=== PATIENT | male | born 1950 | race Caucasian/White ===

== ENCOUNTER 2023-12-28 12:55 | Emergency (ER) | payer MEDICARE, SELFPAY ==
[2023-12-28 12:55] VITALS: BP 151/86; BMI 26.4
[2023-12-28 13:00] VITALS: BP 151/86
[2023-12-28 13:21] LABS: % Basophils 0.6 % (0-2); % Eosinophils 2.8 % (0-6); % Lymphocytes 18.3 % (20.5-51.1); % Monocytes 14.6 % (1.7-9.3); % Neutrophils 62.7 % (42.2-75.2); Absolute Basophils 0.1 10^3/uL (0-0.2); Absolute Eosinophils 0.2 10^3/uL (0-0.7); Absolute Immature Granulocytes 0.1 10^3/uL (0-0.05); Absolute Lymphocytes 1.4 10^3/uL (1.2-3.4); Absolute Monocytes 1.2 10^3/uL (0.1-0.6); Absolute Neutrophils 4.9 10^3/uL (1.4-6.5); Hematocrit 36.3 % (39.0-52.0); Hemoglobin 12.6 g/dL (13.0-18.0); Mean Corp Hgb Conc. 34.7 g/dL (33.0-37.0); Mean Corpuscular Hgb 37.2 pg (27.0-31.0); Mean Corpuscular Volume 107.1 fL (80.0-94.0); Mean Platelet Volume 9.4 fL (7.4-10.4); Nucleated Red Blood Cells % 0 % (-); Platelet Count 148 10^3/uL (130-400); Red Blood Cell Count 3.39 10^6/uL (4.70-6.10); Red Cell Dist. Width 12.3 % (11.5-14.5); White Blood Cell Count 7.9 10^3/uL (4.8-10.8)
[2023-12-28 13:32] LABS: ALT (SGPT) 18 U/L (0-50); AST (SGOT) 28 U/L (17-59); Albumin 3.5 g/dl (3.5-5.0); Alkaline Phosphatase 93 U/L (38-126); Blood Urea Nitrogen 23 mg/dl (9-20); Calcium 8.9 mg/dl (8.4-10.2); Carbon Dioxide 18 mmol/L (22-30); Chloride 103 mmol/L (98-107); Estimated Creatinine Clearance 63 ml/min; Glucose 123 mg/dl (70-99); Potassium 4.5 mmol/L (3.5-5.1); Sodium 135 mmol/L (135-145); Total Bilirubin 0.6 mg/dl (0.2-1.3); Total Protein 6.6 g/dl (6.3-8.2); eGFR > 60.00
[2023-12-28 13:44] LABS: Troponin I < 0.012 ng/ml
[2023-12-28 14:00] VITALS: BP 156/102
--- NOTE | 2023-12-28 14:20 | ED.GENMED ---
History of Present Illness
General
Chief Complaint: Fainting Sensation
Time Seen by Provider: 12/28/23 14:20
Travel History
Have you had any contact with someone who has COVID-19?: No
Do you have any symptoms of coronavirus? Fever > 100 degrees, chills, cough, shortness of breath, sore throat, loss of taste or smell, muscle aches, or headache?: No
History of Present Illness
History of Present Illness:
HPI: Patient felt dizzy earlier today, lowered himself to the ground as he was getting out of the car, and EMS was called but found blood pressure of 80/50 and after 400 mL of IV fluid BP improved to 140/80. Glucose was 127. Currently he has no
symptoms other than some degree of weakness.
EXAM:
GENERAL: Well appearing in no distress, blood pressure somewhat hypertensive
HEENT: Moist oral mucosa
CARDIOVASCULAR: No murmurs, normal heart rate, regular rhythm, No chest wall tenderness
PULMONARY: No respiratory distress, breath sounds are clear and equal
ABDOMEN: Soft with no peritoneal signs, no tenderness
NEUROLOGIC: Excellent strength all extremities, no coordination deficits
PSYCHIATRIC: Appropriate mental status, normal insight and judgement
EXTREMITIES: Nontender, no edema, moves all extremities equally
SKIN: No rash, no lesions
TIME OF INITIAL ENCOUNTER: 2:25 PM
NUMBER AND COMPLEXITY OF PROBLEMS ADDRESSED AT THE ENCOUNTER
� Chronic conditions affecting care: History of migraine, hypothyroidism
� Acute Exacerbation and/or Progression of Chronic Illness: This is an acute problem
� Differential Diagnosis includes: Dehydration, DOMINIQUE, doubt ACS as he is never had any chest pain doubt sepsis his vital signs not consistent with sepsis and white count normal
AMOUNT AND/OR COMPLEXITY OF DATA TO BE REVIEWED AND ANALYZED
� I performed an independent evaluation of and my interpretation is:
EKG: Sinus 65, normal axis, no acute ST abnormality
CT:
X-rays:
Laboratory Studies: White count normal, hemoglobin 12.6, bicarb slightly low at 18, BUN 23, creatinine 1.2, troponin negative
Other:
� Review of other/old records: ~22, BUN 20, creatinine 0.9
� Clinical information was obtained by an independent historian:
� Prescriptions/Medications Considered but not given:
� Further testing considered but not performed:
RISK OF COMPLICATIONS AND/OR MORBIDITY OR MORTALITY OF PATIENT MANAGEMENT
� Social determinants of health affecting care: Lives at home
� Discussion with other providers:
� Escalation of care including admission/observation vs risk of discharge considered: Bicarb slightly low and BUN slightly high suggestive of dehydration�he was given IV fluids and blood pressure has improved. Other than feeling
tired, the patient otherwise has no symptoms as of 2:35 PM. He feels comfortable with going home.
Past History
Past History
ED Past Medical History: Hypothyroidism
ED Past Surgical History: Orthopedic
Social History
Tobacco: Non-smoker
Alcohol: None
Personal:
Living: alone
Employment: Retired
Phy Exam
Physical Exam
Physical Exam:
See HPI
Course
Orders/Labs/Results
Orders:
Orders
12/28/23 13:03
Electrocardiogram (*1) Urgent
Reason for Study: Chest Pain
Cardiac Monitoring- Treatment ONCE
EKG- Treatment ONCE
IV Insert/Care/Rem.- Treatment PRN
O2 Therapy [RESP] Urgent
Titrate/Wean O2 to maintain O2 sat greater than (%): 90
Special Instructions: Maintain sats >/=90%
Pulse Ox/spot Check [RESP] Urgent
Quantity: 1
Special Instructions: ON ROOM AIR
12/28/23 13:11
Complete Blood Count/With Diff Urgent
Comprehensive Metabolic Panel Urgent
Troponin I Urgent
Abnormal Lab Results
12/28/23
13:11
RBC 3.39 L 10^6/uL
(4.70-6.10)
Hgb 12.6 L g/dL
(13.0-18.0)
Hct 36.3 L %
(39.0-52.0)
MCV 107.1 H fL
(80.0-94.0)
MCH 37.2 H pg
(27.0-31.0)
Abs Immat Gran (auto) 0.1 H 10^3/uL
(0-0.05)
Absolute Monos (auto) 1.2 H 10^3/uL
(0.1-0.6)
Immature Gran % 1.0 H %
(0-0.5)
Lymphocytes % 18.3 L %
(20.5-51.1)
Monocytes % 14.6 H %
(1.7-9.3)
Carbon Dioxide 18 L mmol/L
(22-30)
BUN 23 H mg/dl
(9-20)
Glucose 123 H mg/dl
(70-99)
12/28/23 13:11
12/28/23 13:11
Vital Signs
Initial and Last Documented VS:
Initial Vital Signs
Temp Pulse Resp BP Pulse Ox
97.6 F 78 20 151/86 98
12/28/23 12:55 12/28/23 12:55 12/28/23 12:55 12/28/23 12:55 12/28/23 12:55
Last Documented Vital Signs
Temp Pulse Resp BP Pulse Ox
97.6 F 69 24 156/102 97
12/28/23 12:55 12/28/23 14:00 12/28/23 14:00 12/28/23 14:00 12/28/23 14:00
*Critical Care Note
Total Time (30-74mins, 75-104mins- exclusive of procedures): Not Applicable
ED Attending Note
-
Portions of this chart may have been created with voice recognition software.� Occasional wrong word or��sound alike� substitutions may have occurred due to the inherent limitations of voice recognition software.
Discharge Plan
Departure
Prescriptions:
No Action
ofloxacin [Ocuflox] 0.3 % drops
2 drp ophthalmic (eye) QID Qty: 5 0RF
levothyroxine 137 mcg tablet
137 mcg PO DAILY@0700
prednisolone acetate 1 % drops,suspension
erythromycin 5 mg/gram (0.5 %) ointment
montelukast 10 mg tablet
10 mg PO QPM
fluticasone propionate 50 mcg/actuation spray,suspension
2 spray INTRANASAL DAILY
moxifloxacin 0.5 % drops
amoxicillin-pot clavulanate 875-125 mg tablet
1 tab PO BID 3 Days Qty: 6 0RF
Referrals:
Keyona Perez MD [Family Provider] -
Interventions
Interventions:
*Risk Screen - Suicide Last Done: 12/28/23 12:55
*General Assessment Last Done: 12/28/23 12:55
*Neglect/Abuse Screening Last Done: 12/28/23 12:55
ED- Fall Risk Assessment Last Done: 12/28/23 12:55
ED- Cardiac Assessment Last Done: 12/28/23 12:55
ED- Neurological Assessment Last Done: 12/28/23 12:55
Discharge Date and Time
Print Language: PERSIAN
== END 2023-12-28 14:58 | disposition home or self-care (01) ==
LOC: EMR 12:55
PROVIDERS: Emergency Medicine; EMERGENCY PHYSICIAN Emergency Medicine; FAMILY PHYSICIAN Internal Medicine
DX: R55 Syncope and collapse (principal); E03.9 Hypothyroidism, unspecified
CPT/HCPCS: 99283; 80053; 84484; 85025; 93005

== ENCOUNTER → 2024-01-06 08:53 | Outpatient (REF) | payer MEDICARE, SELFPAY | LOC: WOUND 08:53 | PROVIDERS: ATTENDING PHYSICIAN Surgery | DX: T23.251A Burn of second degree of right palm, initial encounter (principal); T23.252A Burn of second degree of left palm, initial encounter; X17.XXXA Contact with hot engines, machinery and tools, initial encounter | CPT/HCPCS: 99203 ==

== ENCOUNTER → 2024-01-12 10:52 | Outpatient (REF) | payer MEDICARE, SELFPAY | LOC: WOUND 10:52 | PROVIDERS: ATTENDING PHYSICIAN Surgery; FAMILY PHYSICIAN Internal Medicine | DX: T23.251A Burn of second degree of right palm, initial encounter (principal); T23.252A Burn of second degree of left palm, initial encounter; X17.XXXA Contact with hot engines, machinery and tools, initial encounter | CPT/HCPCS: 99213 ==

== ENCOUNTER → 2024-01-19 10:28 | Outpatient (REF) | payer MEDICARE, SELFPAY | LOC: WOUND 10:28 | PROVIDERS: ATTENDING PHYSICIAN Surgery; FAMILY PHYSICIAN Internal Medicine | DX: T23.251A Burn of second degree of right palm, initial encounter (principal); T23.252A Burn of second degree of left palm, initial encounter; X17.XXXA Contact with hot engines, machinery and tools, initial encounter | CPT/HCPCS: 99212 ==

== ENCOUNTER → 2024-02-09 15:58 | Outpatient (REF) | payer MEDICARE, SELFPAY | LOC: HWRAD 15:58 | PROVIDERS: ATTENDING PHYSICIAN Internal Medicine | DX: R55 Syncope and collapse (principal); R60.0 Localized edema; R53.83 Other fatigue; I49.9 Cardiac arrhythmia, unspecified; E03.9 Hypothyroidism, unspecified | CPT/HCPCS: 71046 ==

== ENCOUNTER → 2024-02-17 09:26 | Outpatient (REF) | payer MEDICARE, SELFPAY | LOC: RCS 09:26 | PROVIDERS: ATTENDING PHYSICIAN Internal Medicine | DX: R55 Syncope and collapse (principal); R60.0 Localized edema; R53.83 Other fatigue; I49.9 Cardiac arrhythmia, unspecified; E03.9 Hypothyroidism, unspecified | CPT/HCPCS: 93225; 93226 ==

== ENCOUNTER → 2024-02-24 14:47 | Outpatient (REF) | payer MEDICARE, SELFPAY | LOC: HWRCS 14:47 | PROVIDERS: ATTENDING PHYSICIAN Internal Medicine | DX: R55 Syncope and collapse (principal); R60.0 Localized edema; R53.83 Other fatigue; I49.9 Cardiac arrhythmia, unspecified; E03.9 Hypothyroidism, unspecified | CPT/HCPCS: 93306 ==

== ENCOUNTER 2024-02-25 06:11 | Day surgery (SDC) | payer MEDICARE, SELFPAY ==
[2024-02-25 08:09] VITALS: BMI 25.1
[2024-02-25 08:10] VITALS: BP 153/93; BMI 25.1
[2024-02-25] MEDS: TYLENOL 1000 MG PO (08:18)
[2024-02-25] MEDS: NORMOSOL-R 1000 IV (08:19)
[2024-02-25 09:36] VITALS: BP 103/69
[2024-02-25 09:45] VITALS: BP 107/71
[2024-02-25 10:00] VITALS: BP 131/84
== END 2024-02-25 10:19 | disposition home or self-care (01) ==
LOC: SDS 06:11
PROVIDERS: ATTENDING PHYSICIAN Otolaryngology
DX: H65.23 Chronic serous otitis media, bilateral (principal); H69.83 Other specified disorders of Eustachian tube, bilateral; H90.6 Mixed conductive and sensorineural hearing loss, bilateral
CPT/HCPCS: 69436; L8699

== ENCOUNTER → 2024-03-01 10:32 | Outpatient (REF) | payer MEDICARE, SELFPAY | LOC: RCS 10:32 | PROVIDERS: ATTENDING PHYSICIAN Internal Medicine | DX: Z87.898 Personal history of other specified conditions (principal); R53.83 Other fatigue | CPT/HCPCS: 93017 ==

== ENCOUNTER 2024-10-19 18:59 | Inpatient (IN) | payer MEDICARE, SELFPAY ==
[2024-10-19] VITALS (10 sets, daily range): BP systolic 111–169; BP diastolic 76–109; BMI 26.5; BMI 25.4
[2024-10-19 13:37] LABS: % Basophils 0.8 % (0-2); % Eosinophils 2.2 % (0-6); % Immature Granulocytes 0.5 % (0-0.5); % Lymphocytes 10.6 % (20.5-51.1); % Monocytes 16.1 % (1.7-9.3); % Neutrophils 69.8 % (42.2-75.2); Absolute Basophils 0.1 10^3/uL (0-0.2); Absolute Eosinophils 0.1 10^3/uL (0-0.7); Absolute Lymphocytes 0.6 10^3/uL (1.2-3.4); Absolute Neutrophils 4.2 10^3/uL (1.4-6.5); Hematocrit 36.1 % (39.0-52.0); Hemoglobin 12.9 g/dL (13.0-18.0); Mean Corp Hgb Conc. 35.7 g/dL (33.0-37.0); Mean Corpuscular Hgb 37.9 pg (27.0-31.0); Mean Corpuscular Volume 106.2 fL (80.0-94.0); Mean Platelet Volume 8.9 fL (7.4-10.4); Nucleated Red Blood Cells % 0 % (-); Platelet Count 111 10^3/uL (130-400); Red Cell Dist. Width 12.6 % (11.5-14.5)
[2024-10-19 13:49] LABS: ALT (SGPT) 37 U/L (0-50); AST (SGOT) 59 U/L (17-59); Albumin 4.2 g/dl (3.5-5.0); Alkaline Phosphatase 89 U/L (38-126); Blood Urea Nitrogen 19 mg/dl (9-20); Calcium 9.2 mg/dl (8.4-10.2); Carbon Dioxide 23 mmol/L (22-30); Chloride 95 mmol/L (98-107); Estimated Creatinine Clearance 69 ml/min; Glucose 107 mg/dl (70-99); Potassium 4.8 mmol/L (3.5-5.1); Sodium 127 mmol/L (135-145); Total Bilirubin 1.6 mg/dl (0.2-1.3); Total Protein 7.5 g/dl (6.3-8.2); eGFR > 60.00
[2024-10-19 13:55] LABS: COVID-19 Antigen Negative (Negative)
--- NOTE | 2024-10-19 14:24 | ED.GENMED ---
History of Present Illness
General
Chief Complaint: Breathing Problem
Source: patient and family
Exam Limitations: clinical condition
Time Seen by Provider: 10/19/24 13:46
Nursing documentation reviewed up to this point in time: agreed with
History of Present Illness
History of Present Illness:
73 y/o M with h/o COPD, ex smoker
h/o drug and alcohol use (mabye current, maybe int he past)
here with cough/cold sxs and weakness
pt says he has been sick 3-4 days, fever/chills/SOB and coughing
but his daughter says that 4 days ago his found him passed out on the floor an dnot really responsive but pt woke up and told her he had used some marijuana gummies and went to bed
pt says he doesn't remember that
daugther who is with him says that he is confused, stuttering, sometimes speaking jibberish which is unlike him
she is concerned he is using more drug sand alcohol than he amy dmit to
she also says she is his POA but thinks his is trying to take over
pt is not rashad to answer these questions
Past History
Past History
ED Past Medical History: Hypothyroidism
ED Past Surgical History: Orthopedic
Social History
Tobacco: Non-smoker
Alcohol: None
Personal:
Living: alone
Employment: Retired
Review of Systems
Review of Systems
Allergies reviewed?: Yes
Unable to obtain full review of systems at this time due to: other (clinical condition)
All Other Systems: Not applicable
Phy Exam
Physical Exam
Physical Exam:
GENERAL: Alert , in no apparent distress, awake and alert;
EYE: pupils equal and reactive
NECK: Supple
ENT: o/p clr, mmm.
CARDIAC: Regular rate and rhythm .no edema
LUNGS: dimiinshed throughout, occ cough, crackles L base, wheezes b/l
ABDOMEN: Soft, without focal tenderness, no r/g, no cvat, normal bowel sounds
NEUROLOGICAL: Alert and oriented x 3, no focal neuro deficits, cn intact, 5/5 strenbgth; but p
speaks some jibberish words but intermittently
SKIN: Warm and dry, skin intact.
MUSCULOSKELETAL: No edema, well perfused. neg maru's sign
PSYCH: Normal and appropriate interaction.
Scores
Heart Failure Risk
Heart Failure Risk Score: Not Applicable
Sepsis
Sepsis Screening
Sepsis Assessment: Sepsis Ruled Out
Sepsis Screen
Sepsis Screen: Sepsis Ruled Out
Date: 10/19/24
Time: 20:03
Course
Orders/Labs/Results
Orders:
Orders
10/19/24 13:26
Electrocardiogram (*1) Urgent
Reason for Study: Shortness of Breath
EKG- Treatment ONCE
CR Chest - 2 Views Urgent
Comment:
Reason For Exam: cough
10/19/24 13:27
Alcohol Urgent
COVID-19 Antigen Urgent
Source: Nasal Swab
Complete Blood Count/With Diff Urgent
Comprehensive Metabolic Panel Urgent
Lactic Acid Urgent
Influenza A+B Rapid Molecular Urgent
ANIRUDH Source: Nasal Swab
Specimen Description:
10/19/24 14:21
Add On- LAB Urgent
Tests Added?: alcohol
CT Head W/o Iv Contrast Urgent
Comment:
Reason For Exam: confusion, passing out, alcohol;
Acetaminophen [Tylenol] 650 mg PO NOW STA
10/19/24 14:22
Dexamethasone Sod Phosphate [Decadron] 6 mg IV NOW STA
Ipratropium/Albuterol Sulfate [Duoneb] 3 ml INH R NOW STA
10/19/24 15:47
CT Chest PE Study Urgent
Comment:
Reason For Exam: syncope, hypoxia, cough, fever
10/19/24 16:47
0.9% Sodium Chloride 500 ml [Nss] 500 ml IV BOLUS
10/19/24 17:05
Urinalysis Reflex To Culture Urgent
Date Specimen was Collected: 10/19/24
Time Specimen was Collected: 16:15
Urine Drug Abuse Screen Urgent
Date Specimen was Collected: 10/19/24
Time Specimen was Collected: 16:15
Urine Microscopic Reflex Cult Urgent
10/19/24 18:30
ABG [Arterial Blood Gas] Stat
%Oxygen/Room Air: 95%/2L
Procalcitonin Stat
PCT Algorithmm Indication: Respiratory
10/19/24 18:44
Admit/Transfer Patient As Directed
Co-Sign Provider:
Level of Care: Inpatient admission
Assign to:: Telemetry
Physician / Group: Tc Choudhary
Diagnosis: TME, hyponatremia
Reason for Telemetry: Syncope
Date to Stop Telemetry: 10/21/24
Time to Stop Telemetry: 11:00
Reason for Hospitalization: TME, hyponatremia
Expected length of stay greater than two midnights?: Yes
ELOS- Estimated Length of Stay in days: 3
I certify the patient meets the requirements for IP care: Yes
10/19/24 18:45
PRN Pain Medication Management As Directed
May give lesser potent ordered pain med per pt: Yes
preference::
Protocol:: Medication orders for pain may be administered in a
manner that supports deferring to patient preference
when the pt is:
- Requesting an ordered lesser potent pain medication.
Least to most potent pain medications are defined
as: acetaminophen < NSAID < tramadol < opioids
(morphine, oxycodone, hydromorphone).
- Requesting a lesser dose of the same medication IF
ORDERED.
- Requesting a less intrusive route of administration
if both routes are prescribed by the provider (PO <
IV).
10/19/24 18:46
Code Status As Directed
Resuscitation Status: Full Code
10/21/24 11:00
DC Protocol for Telemetry ONCE
Abnormal Lab Results
10/19/24 10/19/24 10/19/24
13:27 17:05 18:30
RBC 3.40 L 10^6/uL
(4.70-6.10)
Hgb 12.9 L g/dL
(13.0-18.0)
Hct 36.1 L %
(39.0-52.0)
MCV 106.2 H fL
(80.0-94.0)
MCH 37.9 H pg
(27.0-31.0)
Plt Count 111 L 10^3/uL
(130-400)
Absolute Lymphs (auto) 0.6 L 10^3/uL
(1.2-3.4)
Absolute Monos (auto) 1.0 H 10^3/uL
(0.1-0.6)
Lymphocytes % 10.6 L %
(20.5-51.1)
Monocytes % 16.1 H %
(1.7-9.3)
pH 7.49 H
(7.35-7.45)
pCO2 31 L mmHg
(35-48)
Sodium 127 L mmol/L
(135-145)
Chloride 95 L mmol/L
(98-107)
Glucose 107 H mg/dl
(70-99)
Total Bilirubin 1.6 H mg/dl
(0.2-1.3)
Urine Ketones 2+ A
(Negative)
Ur Occult Blood Reflex 2+ A
(Negative)
U Marijuana (THC) Screen Positive H
(Negative)
10/19/24 13:27
10/19/24 13:27
Vital Signs
Initial and Last Documented VS:
Initial Vital Signs
Temp Pulse Resp BP Pulse Ox
37.6 C 114 16 151/109 91
10/19/24 13:16 10/19/24 13:16 10/19/24 13:16 10/19/24 13:16 10/19/24 13:16
Last Documented Vital Signs
Temp Pulse Resp BP Pulse Ox
36.9 C 75 26 148/106 93
10/19/24 17:20 10/19/24 18:45 10/19/24 18:45 10/19/24 18:00 10/19/24 18:45
MDM/Problems Addressed
Differential Diagnosis Includes:
, PEbronchitis, pneumonia, sepsis, head injury
MDM/Problems Addressed:
fay rose 73 y/o M COPD, doesn't go to doctor often
change in mental status on 10/15 for who noticed confusion, weakness, facial droop, word finding issues; he told her he used marijuana and went to bed rather than coming in
she said the following day he was not himself
but then was ok
low grade temp and cough x 3 days
today fatige, dyspneic, and weak genearlized;
she also thought he had facial droop not appreciated here
febrile 100.6 for me, faint wheezes/crackles, cough
a&ox3 but some word confusion
pulse ox 90% on RA
cxr clear, covid/flu neg
PE study neg
ct head neg
suspect COPD exac with confusion related to fever/hypoxia; pending ua; steroids/duoneb given
*Critical Care Note
Total Time (30-74mins, 75-104mins- exclusive of procedures): Not Applicable
ED Attending Note
-
Portions of this chart may have been created with voice recognition software.� Occasional wrong word or��sound alike� substitutions may have occurred due to the inherent limitations of voice recognition software.
Discharge Plan
Departure
Patient Disposition: Admit
Date of Disposition: 10/19/24
Time of Disposition: 16:43
Admit to: Telemetry
Presentation/result/management discussed w/ accepting MD/DO: Hospitalist
Condition: Fair
Covid-19: Negative COVID-19
Discharge Problem:
Acute exacerbation of chronic obstructive pulmonary disease, Hypoxia, Confusion, Acute febrile illness
Interventions
Interventions:
*Risk Screen - Suicide Last Done: 10/19/24 13:25
*General Assessment Last Done: 10/19/24 13:25
*Neglect/Abuse Screening Last Done: 10/19/24 13:25
*ED COVID-19 Vaccine History Last Done: 10/19/24 13:44
ED- Cardiac Assessment Last Done: 10/19/24 13:44
ED- Pulmonary Assessment Last Done: 10/19/24 13:44
[2024-10-19] MEDS: TYLENOL 650 MG PO (14:37)
[2024-10-19] MEDS: DECADRON 6 MG IV (14:37)
[2024-10-19] MEDS: DUONEB 3 ML INH (14:37)
[2024-10-19 15:15] LABS: Alcohol None Detected
[2024-10-19 17:26] LABS: Urine Albumin Negative (Neg - Trace); Urine Bilirubin Negative (Negative); Urine Character Clear (Clear); Urine Color Yellow; Urine Glucose Negative (Negative); Urine Ketone 2+ (Negative); Urine Leukocyte Negative (Negative); Urine Nitrite Negative (Negative); Urine Occult Blood 2+ (Negative); Urine Specific Gravity 1.005 (<1.030); Urine Urobilinogen Negative (Neg - 1+)
[2024-10-19 17:30] LABS: Amphetamines Negative (Negative); Barbiturates Negative (Negative); Benzodiazepines Negative (Negative); Buprenorphine Negative (Negative); Cocaine Negative (Negative); Marijuana Positive (Negative); Methadone Negative (Negative); Methamphetamines Negative (Negative); Opiates Negative (Negative); Phencyclidine Negative (Negative); Tricyclic Antidepressants Negative (Negative)
[2024-10-19 17:35] LABS: Urine Red Blood Cell 0-2 /HPF (0-2); Urine Squamous Cell 0-2 /LPF (Few); Urine White Cell 0-2 /HPF (0-5)
--- NOTE | 2024-10-19 17:50 | HPS.HSE ---
Addendum entered and electronically signed by Tc Choudhary MD 10/20/24 08:50:
73-year-old male with a past medical history of former smoking, COPD/asthma, hypothyroidism, and GERD who presents with cough and confusion for several days. He denies shortness of breath, but was found to be hypoxic in the ER, satting 91% on room
air. He is currently requiring 93% on 2 L. His confusion is currently improved. He admits to ingesting THC Gummies recently. His sodium is noted to be 127. CT chest negative for PE, negative for pneumonia.
Will treat for asthma/COPD exacerbation with IV steroids, bronchodilators, doxycycline. Consult pulmonology.
His confusion could be secondary to ingestion of THC Gummies versus hyponatremia. UDS noted, positive for THC.
For hyponatremia, he is on levothyroxine for his hypothyroidism. Check TSH with free T4, a.m. cortisol, urine sodium/osmolality, serum osmolality.
Fluid restrict, trend sodium.
I have personally seen and examined the patient on 10/19/2024, and agree with the plan of care as documented by MARIAN Gamez.
Advance care planning discussed, patient is a full code.
All other issues as outlined by the advanced care practitioner.
Updated family at bedside.
Total time spent to see the patient on the floor, examine the patient, review data and lab results, discuss treatment plan with patient, nursing staff around 77 minutes.
Original Note:
Family Physician
-
Family Physician: Keyona Perez
Chief Complaint
-
confusion
History of Present Illness
Patient is a 73-year-old male with past medical history significant for mild intermittent asthma, IDL, hypothyroidism and GERD who presented to [facility] ED for evaluation of confusion and weakness. Patient able to supply information for HPI. He reports
that he is here for confusion and weakness. He claims he started with a mildly productive cough on Friday and has increasingly felt weaker the past few days. Daughter present who stated patients found him passed out on floor Friday morning,
was nonresponsive for a period time and when he did wake he refused to come to hospital and said he had used marijuana gummies and went to bed. Daughter believes patient is confused, stuttering and at times speaking jibberish which is not his
baseline. Patient reports possible fever at home. Denies any shortness of breath, chest pain, nausea, vomiting, constipation, diarrhea or urinary symptoms.
Medical History
Past Medical History
Past Medical History: Reports Other
Additional Past Medical History:
mild intermittent asthma
ILD
hypothyroidism
GERD
Past Surgical History: Reports Other
Additional Past Surgical History:
Arthroscopy knee(1979)
Vasectomy(1989)
Squamous cell carcinoma - wide excision from Right cheek, done by Dr. Jatinder Alexandre 09/2020
Squamous cell removal from chest Jun 2024
Social History
Tobacco: Non-smoker
Alcohol: None
Drug: Marijuana (uses gummies just about nightly )
Personal:
Living: With Family
Family History
Family History: Other (Mother: Ovarian Ca; Father CVA)
Allergies / Home Medications
Allergies reflects when Allergies were last updated in [employer].
Home Medications with original date entered in [employer]
Allergy/Medication List:
Allergies
Allergy/AdvReac Type Severity Reaction Status Date / Time
Sulfa (Sulfonamide Allergy depression Verified 10/19/24 13:25
Antibiotics)
Home Medications
fluticasone propionate 50 mcg/actuation nasal spray,suspension 2 spray intranasal DAILY 02/28/23
levothyroxine 137 mcg tablet 137 mcg PO DAILY 02/28/23
montelukast 10 mg tablet 10 mg PO HS 02/28/23
budesonide-formoterol HFA 80 mcg-4.5 mcg/actuation aerosol inhaler (Symbicort) 2 puff inhalation R BID 02/02/24
vitamin A-vitamin C-vit E-min tablet 1 tab PO DAILY 02/02/24
testosterone 1 % (50 mg/5 gram) transdermal gel packet 1 packet transdermal DAILY upper torso 02/25/24
albuterol sulfate 90 mcg/actuation aerosol inhaler 2 puff inhalation R Q6HPRN PRN sob 10/19/24
peg 400-propylene glycol (PF) 0.4 %-0.3 % eye drops in a dropperette (Systane (PF)) 1 drp BOTH EYES Q6HPRN PRN dry eyes 10/19/24
vitamin B complex 1 tab PO DAILY 10/19/24
vitamin D3 125 mcg (5,000 unit)-vitamin K2 100 mcg capsule 1 cap PO DAILY 10/19/24
Review of Systems
-
Unable to obtain full review of systems at this time due to: Other (altered mental status )
History Source: Patient
Constitutional: Reports Fever
Respiratory: Reports Cough
Neurological: Reports Weakness and Other (confusion )
Physical Exam
Vital Signs
Vital Signs
Temp Pulse Resp BP Pulse Ox
99.7 F 93 26 164/107 94
10/19/24 13:16 10/19/24 16:20 10/19/24 16:20 10/19/24 16:20 10/19/24 16:20
Physical Exam
General: Well Developed, Well Nourished and No Apparent Distress
HEENT: NormoCephalic, Moist mucous membranes, Atraumatic, [place] Conjunctivae, Nose Appears Normal and Ears Appear Normal
Respiratory: Clear and Decreased Breath Sounds
Cardiac: S1/S2 and Regular Rhythm
Breast: Deferred by me
GI: Soft, Non Tender, Non Distended and Normal Bowel Sounds; No Organomegaly
Rectal: Deferred by Provider
Genito-urinary: Deferred by me
Musculoskeletal: No Clubbing, No Cyanosis and No Edema
Skin: IV/Catheter Site
Neuro: Awake, Alert and Nonfocal/grossly intact
Psych: Calm and Confused
Laboratory Results
-
10/19/24 13:27
10/19/24 13:27
Laboratory Results
Lactic Acid 1.0 mmol/L (0.7-2.0) 10/19/24 13:27
Total Bilirubin 1.6 mg/dl (0.2-1.3) H 10/19/24 13:27
AST 59 U/L (17-59) 10/19/24 13:27
ALT 37 U/L (0-50) 10/19/24 13:27
Alkaline Phosphatase 89 U/L (38-126) 10/19/24 13:27
Data Reviewed
-
Diagnostic Radiology: Report Reviewed by me (CXR: No acute cardiopulmonary process.)
CT Scan: Report Reviewed by me (Head: No acute intracranial abnormality noted. No acute intracranial hemorrhage. Mild chronic microvascular white matter ischemic disease. Moderate to advanced atrophy. Mild acute superimposed on chronic
sinusitis. Nonspecific likely reactive/sterile mastoid effusions. Acute mastoiditis felt to) and Other (Chest CT: 1. No evidence of pulmonary embolism. 2. Prominent mediastinal and right hilar lymph nodes, nonspecific and likely reactive.)
Medical Tests (Nuc Med, Echo, EKG etc): Report Reviewed by me (EKG: NORMAL SINUS RHYTHM)
Lab Data: Labs Reviewed by me (na+ 127)
Impression/Plan
-
IMPRESSION/PLAN:
#toxic metabolic encephalopathy 2/2 infectious process vs. drug induced from THC
fever at home with hypoxia
Na+ 127
UDS: + marijuana
EKG: NORMAL SINUS RHYTHM
CXR: No acute cardiopulmonary process.
Head CT: No acute intracranial abnormality noted.
No acute intracranial hemorrhage.
Mild chronic microvascular white matter ischemic disease.
Moderate to advanced atrophy.
Mild acute superimposed on chronic sinusitis.
Nonspecific likely reactive/sterile mastoid effusions. Acute mastoiditis felt to be less likely. Clinical correlation recommended.
Chest CT: 1. No evidence of pulmonary embolism.
2. Prominent mediastinal and right hilar lymph nodes, nonspecific and likely reactive.
- Admit to telemetry
- Consult Pulmonary
- ABG pending
- dexamethasone
- DuoNebs QID and PRN
- Doxycycline
- if confusion does not improve consider consult to Neurology
#hyponatremia
Na+ 127
- fluid restriction
- monitor BMP
- Serum osmolality
- urine osmolality and urine sodium
- TSH, Free T4, cortisol
#mild intermittent asthma
#ILD
- continue albuterol HFA PRN, Symbicort and montelukast
#hypothyroidism
- continue levothyroxine
#GERD
Code status: Full code
DVT prophylaxis: Lovenox Sq
[2024-10-19] MEDS: NSS 500 IV (17:54)
[2024-10-19 18:39] LABS: HCO3 23.6 mmol/L (21-28); PCO2 31 mmHg (35-48); PO2 85 mmHg (83-108); pH 7.49 (7.35-7.45)
[2024-10-19 19:13] LABS: Procalcitonin 0.15 ng/ml (0.0-0.25)
--- NOTE | 2024-10-19 20:40 | PTCARENOTE ---
Addendum entered by Danisha Bass RN 10/19/24 20:44:
No order for msas at this time. Called to nurse on the floor to verbally pass on that patientmay be using alcohol at home.
Original Note:
Rn flow account [facility]-nursing admission assessment completed. Patient states that he has not drank for 10 years. Patient's daughter followed this nurse into the [facility] and stated that patient has been drinking and using marijuana. Spoke with Itzel bello,
who confirmed that patient denied alcohol use, and confirmed that patient's blood alcohol level upon admission was negative.
--- NOTE | 2024-10-19 22:42 | PTCARENOTE ---
Patient arrived from the ED via stretcher. Patient AAOx3, VSS. Patient ambulated into the room with assistance from staff. Oriented to the room. Updated on plan of care. Call tracy is within reach.
[2024-10-19] MEDS: SYMBICORT 80/4.5 MCG INHALER INH (22:47)
[2024-10-19] MEDS: SINGULAIR 10 MG PO (23:00)
[2024-10-19] MEDS: VIBRAMYCIN 100 MG PO (23:00)
[2024-10-19] MEDS: DECADRON 4 MG IV (23:00)
[2024-10-20] VITALS (8 sets, daily range): BP systolic 93–134; BP diastolic 64–90; PULSE 93–116; O2SAT 95
[2024-10-20 01:01] LABS: Osmolality Urine 207 mOsm/kg (300-900)
[2024-10-20 01:54] LABS: Urine Sodium 31 mmol/L (30-90)
[2024-10-20 02:29] LABS: Cortisol, Random 10.1 ug/dl
[2024-10-20] MEDS: DECADRON 4 MG IV (04:53)
[2024-10-20] MEDS: SYNTHROID 137 MCG PO (04:53)
[2024-10-20] MEDS: SYMBICORT 80/4.5 MCG INHALER 2 PUFF INH (07:24)
[2024-10-20] MEDS: ProAIR HFA INHALER 2 PUFF INH (07:25)
--- NOTE | 2024-10-20 07:29 | CON.PUL ---
Consultation
Consultation Request
Date/Time Consultation Requested: 10/19/2024
Date/Time Consultation Performed: 10/20/2024
Requesting Provider: Jenny Choudhary
Performing Provider: Melinda Hobson
Reason for Consultation: Shortness of breath
Medical History
-
Chief Complaint: Dyspnea
History of Present Illness:
Patient is a very pleasant 73 old gentleman with questionable history of COPD who presented to the hospital with cough and some confusion going on for few days. Patient reports that the cough started with some runny nose, nonproductive and has been
associated with wheezing. He does not report any similar episode in the last 1 year. Patient reports that he was given a diagnosis of COPD couple of years ago and takes Symbicort at home along with as needed albuterol. Usually he takes albuterol
only 2-3 times a week but lately since he got sick he has been using it multiple times every day without significant improvement. In the emergency room workup included a CT chest which was negative for pulmonary embolism or infiltrate but showed
mediastinal and hilar lymphadenopathy. Pulmonary consultation was requested for further input.
Social history. Patient reports that he smoked only for a year to year and a half, less than a pack a day and he quit more than 40 years ago. Does not report any inhaled marijuana use except for rare use in the remote past. Uses Marijuana gummies.
He is retired as a supply chain project manager and does not report any exposure to toxic chemicals or fumes. Patient does have a cat but does not report any exposure to birds. 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
etc. but does not report any allergic symptoms to these exposures.
Family history. No reported history of asthma. Mother had ovarian cancer.
Past Medical History: Reports Other
Additional Past Medical History:
mild intermittent asthma
?ILD
hypothyroidism
GERD
Past Surgical History: Reports Other
Additional Past Surgical History:
Arthroscopy knee(1979)
Vasectomy(1989)
Squamous cell carcinoma - wide excision from Right cheek, done by Dr. Jatinder Alexandre 09/2020
Squamous cell removal from chest Jun 2024
Family History
Family History: Other (Mother: Ovarian Ca; Father CVA)
Allergies / Home Medications
Allergies reflects when Allergies were last updated in [facility].
Allergies / Home Medications
Allergies
Allergy/AdvReac Type Severity Reaction Status Date / Time
Sulfa (Sulfonamide Allergy depression Verified 10/19/24 13:25
Antibiotics)
Home Medications
�Medication �Instructions �Recorded �Confirmed �Last Taken �Type
fluticasone propionate 50 2 spray intranasal DAILY 02/28/23 10/19/24 02/25/24 06:00 History
mcg/actuation nasal
spray,suspension
levothyroxine 137 mcg tablet 137 mcg PO DAILY 02/28/23 10/19/24 02/25/24 06:00 History
montelukast 10 mg tablet 10 mg PO HS 02/28/23 10/19/24 02/23/24 21:00 History
budesonide-formoterol HFA 80 2 puff inhalation R BID 02/02/24 10/19/24 02/25/24 06:00 History
mcg-4.5 mcg/actuation aerosol
inhaler (Symbicort)
vitamin A-vitamin C-vit E-min 1 tab PO DAILY 02/02/24 10/19/24 02/24/24 09:00 History
tablet
testosterone 1 % (50 mg/5 gram) 1 packet transdermal DAILY upper 02/25/24 10/19/24 02/24/24 History
transdermal gel packet torso
albuterol sulfate 90 mcg/actuation 2 puff inhalation R Q6HPRN PRN sob 10/19/24 10/19/24 Unknown History
aerosol inhaler
peg 400-propylene glycol (PF) 0.4 1 drp BOTH EYES Q6HPRN PRN dry eyes 10/19/24 10/19/24 Unknown History
%-0.3 % eye drops in a dropperette
(Systane (PF))
vitamin B complex 1 tab PO DAILY 10/19/24 10/19/24 Unknown History
vitamin D3 125 mcg (5,000 1 cap PO DAILY 10/19/24 10/19/24 Unknown History
unit)-vitamin K2 100 mcg capsule
Review of Systems
-
Hematologic/Lymphatic: Other (All 14 systems reviewed and negative except as stated above in the history of present illness.)
Vitals / Labs / Diagnostic Testing
Vital Signs
Temp Pulse Resp BP Pulse Ox
97.4 F 62 20 129/90 97
10/20/24 03:59 10/20/24 03:59 10/20/24 03:59 10/20/24 03:59 10/20/24 03:59
Laboratory Results
10/19/24
18:30
pH 7.49 H
pCO2 31 L
pO2 85
HCO3 23.6
O2 Delivery Level
Microbiology
10/19/24 13:27 Nasal Swab Influenza Types A & B (MARI) - Final
Negative for Influenza A & B, NAAT
Negative results must be combined with clinical observations
and patient history.
Nucleic Acid Amplification test (NAAT)performed on the
[employer] platform.
Diagnostic Testing:
Physical Exam
-
HEENT: Normocephalic
Cardiovascular: S1/S2
Respiratory: Wheeze (Bilateral end expiratory wheezing)
GI: Soft and Non Distended
Neurology: Awake and Alert
Skin: Warm
General: Comfortable
Assessment
-
#1. Acute exacerbation of hyperreactive airway disease, suspect asthma exacerbation. Patient smoked only for about a year and a half and does not have any emphysematous changes on imaging. Less likely has significant COPD. Suspect patient might
have underlying asthma.
-Hold Symbicort
-Start DuoNeb 4 times daily and budesonide twice daily scheduled
-Start Solu-Medrol 40 mg IV daily
-Post discharge, patient will need pulmonary function testing along with lung volumes, bronchodilator responsiveness and 6-minute walk test, will arrange that as outpatient
-Outpatient pulmonary follow-up
#2. Acute bronchitis. No definitive pulmonary infiltrates noted on imaging. CT scan reviewed and is not suggestive of interstitial lung disease based on radiological features.
-Can continue doxycycline for about 5 days
#3. Mediastinal and Hilar lymphadenopathy. CT scan reviewed and is suggestive of paratracheal and subcarinal lymphadenopathy along with right hilar lymph node enlargement. Right hilar is almost at 3.1 cm which is somewhat concerning. These
changes could be reactive to an infection but need close monitoring for other etiologies including malignancy.
-Continue treatment for acute bronchitis
-Will plan a 6 to 8-week follow-up CT scan as outpatient, if lymph node still enlarged, will need EBUS-TBNA. I updated the patient and her daughter at bedside regarding this abnormal finding and need for close follow-up as outpatient
-Recommend CT abdomen pelvis also, if any extrathoracic lymphadenopathy also noted, then will need tissue diagnosis sooner
Data:
CT CHEST 10/2024: 1. Mildly enlarged mediastinal lymph nodes measuring up to 1.4 cm in the low left paratracheal region and 1.1 cm short axis diameter in the subcarinal region. Right hilar lymphadenopathy measures up to 3.1 cm. Mild left hilar
lymphadenopathy. These lymph nodes are increased from prior.
2. No suspicious pulmonary nodules, areas of airspace disease, pleural or pericardial effusions. Heart is not enlarged. Mild to moderate coronary artery calcifications.
3. No PE
CXR 10/2024: Unremarkable
Exercise Stress test 02/2024: Negative for Ischemia
ECHO 02/2024: Normal left ventricular size, wall thickness and systolic function. No regional
wall motion abnormalities are seen. LV ejection fraction is 60-65% by Monsalve's
method of discs. Normal diastolic function.
Normal right ventricular size and function.
Mild mitral regurgitation.
Mild to moderate tricuspid regurgitation. Estimated pulmonary artery pressure
of 35-40 mmHg, assuming a right atrial pressure of 3 mmHg.
Compared to previous echo 09/04/2015, the tricuspid regurgitation is increased
from trace to mild-moderate.
[2024-10-20 08:11] LABS: Hematocrit 37.6 % (39.0-52.0); Hemoglobin 13.5 g/dL (13.0-18.0); Mean Corp Hgb Conc. 35.9 g/dL (33.0-37.0); Mean Corpuscular Hgb 38.5 pg (27.0-31.0); Mean Corpuscular Volume 107.1 fL (80.0-94.0); Mean Platelet Volume 9.6 fL (7.4-10.4); Platelet Count 120 10^3/uL (130-400); Red Blood Cell Count 3.51 10^6/uL (4.70-6.10); Red Cell Dist. Width 12.4 % (11.5-14.5); White Blood Cell Count 3.7 10^3/uL (4.8-10.8)
[2024-10-20 08:31] LABS: Osmolality Serum 289 mOsm/kg (275-300)
[2024-10-20 08:36] LABS: Blood Urea Nitrogen 23 mg/dl (9-20); Calcium 9.4 mg/dl (8.4-10.2); Carbon Dioxide 20 mmol/L (22-30); Chloride 102 mmol/L (98-107); Estimated Creatinine Clearance 84 ml/min; Glucose 197 mg/dl (70-99); Potassium 4.3 mmol/L (3.5-5.1); Sodium 136 mmol/L (135-145); eGFR > 60.00
[2024-10-20] MEDS: VIBRAMYCIN 100 MG PO ×2 (09:02→20:52)
[2024-10-20 09:06] LABS: TSH Reflex To Free T4 0.32 uIU/ml (0.47-4.68)
--- NOTE | 2024-10-20 09:10 | W.PN.HOSP.TC ---
Today's Communication/Plan
-
see bold
Assessment / Plan
Assessment / Plan
HPI: 73-year-old male with a past medical history of asthma, hypothyroidism, and GERD who presents with cough and confusion for several days. He denies shortness of breath, but was found to be hypoxic in the ER, satting 91% on room air. He is
currently requiring 93% on 2 L. His confusion is currently improved. He admits to ingesting THC Gummies recently. His sodium is noted to be 127. CT chest negative for PE, negative for pneumonia.
#Acute hypoxic respiratory insufficiency
#Acute asthma exacerbation
#COPD ruled out
#ILD ruled out
Patient only smoked for 1 year, he does not have COPD
Appreciate pulmonology input, continue IV steroids, bronchodilators, doxycycline for anti-inflammatory effect
Hypoxia resolved, currently 95% on room air, was requiring 2 L
#Acute toxic metabolic encephalopathy
#Weakness
Suspect secondary to hyponatremia of 127 upon admission versus THC Gummies
Mentation 80% improved on 10/20, monitor
PT rec HH
C/S OT for cognitive screening, check B12 levels, folic acid
#Reported syncope
and patient's PCP reports syncope
Patient had echocardiogram and Holter monitor outpatient, all of which are normal
PCP requesting cardiology consult, consult placed
#Hyponatremia
TSH reviewed, a.m. cortisol normal, urine studies reviewed
Suspect due to pulmonary process, sodium 136 today, was 127 upon admission
#Hypothyroidism
TSH mildly low at 0.32, free T4 normal
Currently on levothyroxine 137 mcg daily
DVT prophylaxis�Lovenox
Full code
Updated daughter twice on 10/20
Total time spent to see the patient on the floor, examine the patient, review data and lab results, discuss treatment plan with patient, nursing staff around 55 minutes.
Physical Exam
General: No acute distress
HEENT: Normocephalic, Atraumatic, EOMI, MMM
Respiratory: Scattered wheezing
Cardiac: Normal S1/S2, Regular Rate and Rhythm
GI: Soft, Nontender, Nondistended, Normal Bowel Sounds
Extremities: No Clubbing, Cyanosis, or Edema
Neuro: Nonfocal/Grossly Intact
Anticipated Discharge: 24 - 48 hours
Subjective/Interval History
-
Date of Service: October 20, 2024
Patient reports feeling better. Weakness improved. Cough improved. Confusion resolved per family. No fever, no vomiting.
Objective Data
-
Labs:
Laboratory Results
10/20/24
06:56
WBC 3.7 L
Hgb 13.5
Hct 37.6 L
Plt Count 120 L
Sodium 136 D
Potassium 4.3
Chloride 102
Carbon Dioxide 20 L
BUN 23 H
Creatinine 0.9
Glucose 197 H
Calcium 9.4
Vital Signs:
Vital Signs
Temp Pulse Resp BP Pulse Ox
97.5 F 75 14 123/82 98
10/20/24 07:30 10/20/24 07:34 10/20/24 07:34 10/20/24 07:30 10/20/24 07:34
I&O
10/19/24 10/20/24 10/21/24
06:59 06:59 06:59
Intake Total 240 / 240
Output Total 975 / 975
Balance -735 / -735
[2024-10-20 09:36] LABS: Free T4 1.35 ng/dl (0.78-2.19)
[2024-10-20] MEDS: DUONEB 3 ML INH ×3 (11:32→19:19)
[2024-10-20] MEDS: SOLU-MEDROL PF 40 MG IV (12:14)
[2024-10-20] MEDS: OMNIPAQUE 50 ML PO (12:15)
--- NOTE | 2024-10-20 15:03 | CON.CAR ---
Addendum entered and electronically signed by Irineo Long MD 10/20/24 16:27:
Patient seen and examined
Agree with REMINGTON Granda's note and assessment
Agree with REMINGTON Granda's plan
Reviewed telemetry which demonstrates sinus tachycardia
He demonstrated approximately 5 days of lightheadedness and dizziness particularly with going from a sitting to standing position. He had carin syncope this weekend and an episode of carin syncope last year in the standing position.
Exam:
As per REMINGTON Granda's note and assessment
JVP 6
Cor regular no murmur
Lungs clear to auscultation bilaterally
Abdomen soft nontender positive bowel sounds
No extremity edema
Alert and x 3
Assessment:
Presentation with unresponsive/syncopal events
Confusion
Hyponatremia
Acute hypoxic respiratory insufficiency
COPD/asthma with acute exacerbation
Mediastinal and hilar lymphadenopathy by imaging
Hypothyroidism
Macrocytic B12 Anemia
Orthostasis
Holter monitor 02/17/24: Predominantly sinus rhythm, no sustained arrhythmias, no pauses greater than 2.5 seconds
Echocardiogram 02/24/2024: EF 60 to 65%, no regional wall motion abnormalities noted, mild MR, mild to moderate TR, PAP 35 to 40 mmHg
Treadmill stress test 03/01/2024: No acute evidence of ischemia at 6.5 METS of activity
Plan:
-Chest CT negative for PE. Does show evidence of mediastinal and hilar lymphadenopathy and is planned for CT of the abdomen and pelvis per pulmonary
-Underwent recent cardiac evaluation through primary care physician including treadmill stress, echo, Holter 02/2024 as above. No clear etiologies for syncope by those studies
-in SR by EKG and review of tele since admission.
-Is noted to be orthostatic. Would add compression stockings and follow
-head CT negative for acute abnormalities. d/w hospitalist, concern for neurologic etiology for symptoms. would consider neuro evaluation
-would consider for longer term OP cardiac monitoring upon DC-we will arrange a 7-day [employer] DX monitor and I also discussed if he has infrequent but serious events could consider ILR implant. We will arrange an outpatient evaluation in the office.
-d/w nursing. d/w at bedside
Original Note:
Consultation
Consultation Request
Date/Time Consultation Performed: 10/20/24
Requesting Provider: Dr. Bryan Choudhary
Performing Provider: Tiffany Granda PA-C for Dr. Long
Reason for Consultation: syncope
Medical History
-
Chief Complaint: confusion, syncope
History of Present Illness:
Patient is a 73 yo M with PMH of COPD/asthma, hypothyroidism, macrocytic Vit B12 anemia who presented to due to unresponsive episodes. Patient and have somewhat different recollections of his events. Patient states that on Friday he
started with cough and felt very weak and fatigued. He reports he slept until Friday late morning. He states he then got up and felt very weak. He sat down on the couch and reports feeling somewhat dizzy. He states he did not pass out but his
was concerned and brought him to the ER for further evaluation. He reports he had 1 other episode of syncope over the summer where he felt well and all of a sudden passed out on the ground and his found him on the driveway. He reports
this was secondary to dehydration. His however, states that this is his fourth episode. Two of these episodes occurred over the summer, and then he had an episode on Friday evening as well as yesterday morning. She reports with the episodes
he is very weak, he is clumsy, incoherent, and she states as though there are 'puzzle pieces that are not coming together'. She reports she has noted over the last year and a half that he has had many more minor episodes of this where he is
confused or off balance and has trouble with seemingly normal tasks such as interpreting what he read in a manual. Over the summer she reports she did find him facedown in the gravel in their driveway, however then states he was confused and very
off. After his February episodes he was seen by his primary care physician and underwent workup including stress echo, echocardiogram, and Holter monitor all of which were relatively unrevealing for etiology of syncope. She reports on Friday she
found him slumped over in a chair and 'thought he was .' He came to within 3-4 minutes and refused seeking medical attention. With the episode on Thursday 10/19, he could not figure out how to stand up from the couch, and she states he urinated
himself after saying that he needed to go to the bathroom but could not figure out how to take his pants off. She also noted left sided eye and mouth drooping which improved after he received some IV fluids. She states he has not been remembering
events accurately. he did have a marijuana gummy over the weekend for the first time. Patient and both deny alcohol use, stimulant use, or new medications. On arrival he was noted to have a sodium of 127. He is being treated for a
COPD/asthma exacerbation.
PMH:
COPD/asthma
Hypothyroidism
Macrocytic B12 Anemia
Past Medical History
Past Medical History: Other (in HPI)
Social History
Tobacco: Non-Smoker
Alcohol: None
Drug: Other (THC gummy x1 over weekend)
Personal:
Living: With Family
Employment: Retired
Family History
Family History: Reviewed & Not Pertinent
Allergies / Home Medications
Allergy/AdvReac Type Severity Reaction Status Date / Time
Sulfa (Sulfonamide Allergy depression Verified 10/19/24 13:25
Antibiotics)
�Medication �Instructions �Recorded �Confirmed �Type
fluticasone propionate 50 2 spray intranasal DAILY 02/28/23 10/19/24 History
mcg/actuation nasal
spray,suspension
levothyroxine 137 mcg tablet 137 mcg PO DAILY 02/28/23 10/19/24 History
montelukast 10 mg tablet 10 mg PO HS 02/28/23 10/19/24 History
budesonide-formoterol HFA 80 2 puff inhalation R BID 02/02/24 10/19/24 History
mcg-4.5 mcg/actuation aerosol
inhaler (Symbicort)
vitamin A-vitamin C-vit E-min 1 tab PO DAILY 02/02/24 10/19/24 History
tablet
testosterone 1 % (50 mg/5 gram) 1 packet transdermal DAILY upper 02/25/24 10/19/24 History
transdermal gel packet torso
albuterol sulfate 90 mcg/actuation 2 puff inhalation R Q6HPRN PRN sob 10/19/24 10/19/24 History
aerosol inhaler
peg 400-propylene glycol (PF) 0.4 1 drp BOTH EYES Q6HPRN PRN dry eyes 10/19/24 10/19/24 History
%-0.3 % eye drops in a dropperette
(Systane (PF))
vitamin B complex 1 tab PO DAILY 10/19/24 10/19/24 History
vitamin D3 125 mcg (5,000 1 cap PO DAILY 10/19/24 10/19/24 History
unit)-vitamin K2 100 mcg capsule
Review of Systems
-
History Source: Patient and Family
All other systems: Negative unless noted
Physical Exam
Vital Signs
Temp Pulse Resp BP Pulse Ox
97.6 F 90 15 118/77 95
10/20/24 11:00 10/20/24 11:35 10/20/24 11:35 10/20/24 11:00 10/20/24 11:35
Lab Results
10/20/24 06:56
10/20/24 06:56
Physical Exam
General: No Apparent Distress and Comfortable
HEENT: Normocephalic, Anicteric and Moist Mucous Membranes
Respiratory: Clear and Non Labored Respirations
Cardiac: S1/S2 and Regular Rhythm
GI: Soft, Non Tender, Non Distended and Normal Bowel Sounds
Musculoskeletal: No Clubbing, No Cyanosis and No Edema
Skin: Warm and Dry
Neuro: AO x 3
Impression / Plan
-
Primary Space Systems Operations Manager: none prior to admission
PCP: Dr. Perez
Assessment:
Presentation with unresponsive/syncopal events
Confusion
Hyponatremia
Acute hypoxic respiratory insufficiency
COPD/asthma with acute exacerbation
Mediastinal and hilar lymphadenopathy by imaging
Hypothyroidism
Macrocytic B12 Anemia
Orthostasis
Holter monitor 02/17/24: Predominantly sinus rhythm, no sustained arrhythmias, no pauses greater than 2.5 seconds
Echocardiogram 02/24/2024: EF 60 to 65%, no regional wall motion abnormalities noted, mild MR, mild to moderate TR, PAP 35 to 40 mmHg
Treadmill stress test 03/01/2024: No acute evidence of ischemia at 6.5 METS of activity
Plan:
- Patient presents with 2 unresponsive events within the last 5 days with associated confusion. Reviewed last note from PCP 09/02/24. Noted on arrival to have hyponatremia with sodium of 127, now corrected. Also being treated for acute asthma/COPD
exacerbation with evidence of hypoxia. Cardiology consulted to evaluate for cardiac source of events as there was also concern for syncope
-Chest CT negative for PE. Does show evidence of mediastinal and hilar lymphadenopathy and is planned for CT of the abdomen and pelvis per pulmonary
-Underwent recent cardiac evaluation through primary care physician including treadmill stress, echo, Holter 02/2024 as above. No clear etiologies for syncope by those studies
-in SR by EKG and review of tele since admission.
-Is noted to be orthostatic. Would add compression stockings and follow
-head CT negative for acute abnormalities. d/w hospitalist, concern for neurologic etiology for symptoms. would consider neuro evaluation
-would consider for longer term OP cardiac monitoring upon DC
-d/w nursing. d/w at bedside
Data Reviewed
-
EKG: Tracing Personally Visualized and interpreted
Radiology: Report Reviewed by me
CT Scan: Report Reviewed by me
Medical Tests (Nuc Med, Echo etc): Report Reviewed by me
Labs: Labs Reviewed by me
Old Records: Reviewed
[2024-10-20] MEDS: LOVENOX 40 MG SC (16:51)
--- NOTE | 2024-10-20 17:17 | CM ---
Met with patient to obtain information for assessment. Patient stated that he lives with his S.O in a farmhouse with three steps to enter and two floors. He described himself as independent with his ADLs, personal care, dressing and bathing. He
denied any DME. He has not had VN services or been to a SNF in the past.
He has a prescription plan and uses, [facility] in [place] for all of his medications.
Patient's PCP is, Keyona Perez.
Plan: Case management will continue to follow and assist with discharge planning. Patient hopeful to go home no needs.
[2024-10-20] MEDS: PULMICORT 0.5 MG INH (19:19)
[2024-10-20] MEDS: SINGULAIR 10 MG PO (20:53)
--- NOTE | 2024-10-20 22:36 | W.PN.UPDATE ---
Update Note
Progress Note Update
patient requesting his vitamin B complex now, is agreeable to take vitamin B complex with vitamin C. order placed
[2024-10-20] MEDS: B COMPLEX w/VITAMIN C 1 CAPLET PO (22:42)
[2024-10-21] VITALS (7 sets, daily range): BP systolic 96–128; BP diastolic 72–86; PULSE 43–102
[2024-10-21] MEDS: SYNTHROID 137 MCG PO (05:46)
[2024-10-21] MEDS: PULMICORT 0.5 MG INH ×2 (07:24→19:20)
[2024-10-21] MEDS: DUONEB 3 ML INH ×3 (07:25→19:20)
[2024-10-21 07:27] LABS: Blood Urea Nitrogen 25 mg/dl (9-20); Calcium 9.3 mg/dl (8.4-10.2); Carbon Dioxide 23 mmol/L (22-30); Chloride 104 mmol/L (98-107); Estimated Creatinine Clearance 69 ml/min; Glucose 117 mg/dl (70-99); Magnesium 2.2 mg/dl (1.6-2.3); Phosphorus 3.9 mg/dl (2.5-4.5); Potassium 3.6 mmol/L (3.5-5.1); Sodium 138 mmol/L (135-145); eGFR > 60.00
[2024-10-21 08:32] LABS: Folate 10.6 ng/ml (2.76-20); Vitamin B12 817 pg/ml (239-931)
--- NOTE | 2024-10-21 09:14 | PN.CDI ---
CDI
- -
CDI:
Physician Documentation Request
Admit Date: 10/19/24 18:59
Dear Doctor Do.
Clinical Indicators:
Patient admitted with acute asthma exacerbation and TME.
WBC, RBC, plts:
10/19/24 10/20/24
13:27 06:56
WBC 3.7 L
RBC 3.51 L
Hgb 12.9 L
Plt Count 111 L 120 L
Based on the above, could you clarify in the progress notes, the appropriate diagnosis, if significant, that supports the above abnormalities and additional evaluation, monitoring and/or treatment rendered:
Pancytopenia
Neutropenia/thrombocytopenia
Abnormal lab values, clinically insignificant
Other, please specify
Use of terms such as suspected, likely, concern for, or probable (associated with a specific diagnosis that is being evaluated, monitored, or treated as if it exists) are acceptable and can be coded in the inpatient setting, when documented at the
time of discharge.
Thank you,
Katherine Yuan RN BSN
CDI Specialist
available via tiger text
Please use your independent medical judgment in providing your response.
[2024-10-21] MEDS: VIBRAMYCIN 100 MG PO ×2 (09:17→19:58)
[2024-10-21] MEDS: SOLU-MEDROL PF 40 MG IV ×2 (09:17→19:59)
[2024-10-21] MEDS: MUCINEX 600 MG PO ×2 (09:29→19:58)
--- NOTE | 2024-10-21 09:49 | W.PN.HOSP.TC ---
Today's Communication/Plan
-
see bold
Assessment / Plan
Assessment / Plan
HPI: 73-year-old male with a past medical history of asthma, hypothyroidism, and GERD who presents with cough and confusion for several days. He denies shortness of breath, but was found to be hypoxic in the ER, satting 91% on room air. He is
currently requiring 93% on 2 L. His confusion is currently improved. He admits to ingesting THC Gummies recently. His sodium is noted to be 127. CT chest negative for PE, negative for pneumonia.
#Acute hypoxic respiratory insufficiency
#Acute exacerbation of hyperreactive airway disease, probable asthma exacerbation
#Acute bronchitis
#COPD ruled out
#ILD ruled out
Patient only smoked for 1 year, he does not have COPD
Flu/covid neg
Appreciate pulmonology input, continue IV steroids, bronchodilators, doxycycline for anti-inflammatory effect
Hypoxia resolved, currently 95% on room air, was requiring 2 L
#TIA
#Transient facial droop
#Dysarthria
#Confusion
Appreciate neurology input, clinically this is a fully resolved TIA in the setting of paroxysmal atrial fibrillation
Check hemoglobin A1c, fasting lipid profile, patient requesting brain MRI
Repeat echo 10/21/2024 reviewed
#Paroxysmal atrial fibrillation on telemetry�new diagnosis
Started on Toprol-XL 12.5 mg daily by cardiology
Started on Eliquis 5 mg twice a day by neurology
#Weakness
Suspect secondary to hyponatremia of 127 upon admission versus THC Gummies
Mentation 80% improved on 10/20, monitor
PT rec HH
C/S OT for cognitive screening
BB12 levels, folic acid normal
#Reported syncope
and patient's PCP reports syncope
Seen by cardiology and neurology as above
#Mediastinal and hilar lymphadenopathy
Monitor
#Pancytopenia
Monitor
#Hyponatremia
TSH reviewed, a.m. cortisol normal, urine studies reviewed
Suspect due to pulmonary process, sodium normal, was 127 upon admission
#Hypothyroidism
TSH mildly low at 0.32, free T4 normal
Currently on levothyroxine 137 mcg daily
DVT prophylaxis�Lovenox
Full code
Updated daughter twice on 10/20
Updated domestic partner 10/21
Total time spent to see the patient on the floor, examine the patient, review data and lab results, discuss treatment plan with patient, nursing staff around 53 minutes.
Physical Exam
General: No acute distress
HEENT: Normocephalic, Atraumatic, EOMI, MMM
Respiratory: Scattered wheezing
Cardiac: Normal S1/S2, Regular Rate and Rhythm
GI: Soft, Nontender, Nondistended, Normal Bowel Sounds
Extremities: No Clubbing, Cyanosis, or Edema
Neuro: Nonfocal/Grossly Intact
Anticipated Discharge: 24 - 48 hours
Subjective/Interval History
-
Date of Service: October 20, 2024
Patient reports feeling congested today. Reports his cough is worse. No fever, no vomiting.
Objective Data
-
Labs:
Laboratory Results
10/20/24
06:56
WBC 3.7 L
Hgb 13.5
Hct 37.6 L
Plt Count 120 L
Sodium 136 D
Potassium 4.3
Chloride 102
Carbon Dioxide 20 L
BUN 23 H
Creatinine 0.9
Glucose 197 H
Calcium 9.4
Vital Signs:
Vital Signs
Temp Pulse Resp BP Pulse Ox
97.6 F 90 15 118/77 95
10/20/24 11:00 10/20/24 11:35 10/20/24 11:35 10/20/24 11:00 10/20/24 11:35
I&O
10/19/24 10/20/24 10/21/24
06:59 06:59 06:59
Intake Total 240 / 240
Output Total 975 / 975
Balance -735 / -735
--- NOTE | 2024-10-21 11:33 | W.PN.CARDCBS ---
Addendum entered and electronically signed by Irineo Long MD 10/21/24 15:20:
Patient seen and examined
Agree with REMINGTON Granda's note and assessment
Agree with REMINGTON Granda's plan
Reviewed telemetry which demonstrates short periods of atrial fibrillation on telemetry and short periods of atrial tachycardia. He is clear evidence for less than 10-second bursts of atrial fibrillation on telemetry by my review
He is being evaluated for long-duration unresponsiveness�syncopal events and appreciate neurologic input.
He feels better today and was seen after ambulation with physical therapy
Less orthostatic symptoms
Exam:
Cor regular in sinus rhythm when examined
Alert and x 3
Nonfocal neurologically
JVP 6
Abdomen soft nontender positive bowel sounds
No extremity edema
Assessment:
Presentation with unresponsive/syncopal events
Short bursts of paroxysmal atrial fibrillation on telemetry�new diagnosis
Confusion
Hyponatremia
Acute hypoxic respiratory insufficiency
COPD/asthma with acute exacerbation
Mediastinal and hilar lymphadenopathy by imaging
Hypothyroidism
Macrocytic B12 Anemia
Orthostasis
Holter monitor 02/17/24: Predominantly sinus rhythm, no sustained arrhythmias, no pauses greater than 2.5 seconds
Echocardiogram 02/24/2024: EF 60 to 65%, no regional wall motion abnormalities noted, mild MR, mild to moderate TR, PAP 35 to 40 mmHg
Treadmill stress test 03/01/2024: No acute evidence of ischemia at 6.5 METS of activity
Plan:
-presented with 2 unresponsive events with associated confusion-I am doubtful that these short periods of atrial fibrillation are responsible for her symptoms
-hyponatremia improved
-being treated for acute asthma/COPD exacerbation per primary service
-chest CT negative for PE
- I would favor initiation of oral anticoagulation. Would be reasonable to consider a brain MRI first given his change in mental status just to make sure there is no brain parenchymal finding that would make initiation of oral anticoagulation more
high risk. His AF is short in duration less than 20 seconds so we could start the novel oral anticoagulant prior to discharge or after his MRI. We are planning long-term monitor at discharge and we can assess his overall AF burden on this monitor.
- My team d/w hospitalist via TT. head CT negative. would recommend neuro eval and brain MRI to rule out CVA.
-was orthostatic as of 10/20 VS, improved 10/21. continue compression stockings.
-given PAF vs MAT, we will initiate addition of low dose toprol as BP allows
-d/w nursing. will attempt to catch arrhythmia by EKG
Original Note:
Today's Communication / Plan
-
neuro evaluation
follow on tele
consider addition of low dose toprol
follow orthos
Impression / Plan
-
Primary Home Hospice Aide: none prior to admission
PCP: Dr. Perez
Assessment:
Presentation with unresponsive/syncopal events
Confusion
Hyponatremia
Acute hypoxic respiratory insufficiency
COPD/asthma with acute exacerbation
Mediastinal and hilar lymphadenopathy by imaging
Brief PAF/MAT
Hypothyroidism
Macrocytic B12 Anemia
Orthostasis
Holter monitor 02/17/24: Predominantly sinus rhythm, no sustained arrhythmias, no pauses greater than 2.5 seconds
Echocardiogram 02/24/2024: EF 60 to 65%, no regional wall motion abnormalities noted, mild MR, mild to moderate TR, PAP 35 to 40 mmHg
Treadmill stress test 03/01/2024: No acute evidence of ischemia at 6.5 METS of activity
Plan:
-presented with 2 unresponsive events with associated confusion.
-hyponatremia improved
-being treated for acute asthma/COPD exacerbation per primary service
-chest CT negative for PE
-on review of tele overnight, noted to have brief afib vs MAT, discussed with patient 10/21. he does report palpitations at times. [id number] score as of now, 1 for age.
-d/w hospitalist via TT. head CT negative. would recommend neuro eval and brain MRI to rule out CVA. would consider for OAC when ok per neuro.
-was orthostatic as of 10/20 VS, improved 10/21. continue compression stockings.
-given PAF vs MAT, would consider addition of low dose toprol as BP allows
-d/w nursing. will attempt to catch arrhythmia by EKG
Progress Note - Home Hospice Aide
Subjective
Date of Service: October 21, 2024
Reports occasional palpitations.
Objective
Labs:
10/20/24 06:56
10/21/24 06:00
Labs
Hgb 13.5 g/dL (13.0-18.0) 10/20/24 06:56
Hct 37.6 % (39.0-52.0) L 10/20/24 06:56
Plt Count 120 10^3/uL (130-400) L 10/20/24 06:56
Sodium 138 mmol/L (135-145) 10/21/24 06:00
Potassium 3.6 mmol/L (3.5-5.1) 10/21/24 06:00
BUN 25 mg/dl (9-20) H 10/21/24 06:00
Creatinine 1.1 mg/dL (0.7-1.3) 10/21/24 06:00
Glucose 117 mg/dl (70-99) H 10/21/24 06:00
Vital Signs and I&O:
Vital Signs
Temp Pulse Resp BP Pulse Ox
98 F 83 18 126/85 94
10/21/24 11:17 10/21/24 11:17 10/21/24 11:17 10/21/24 11:17 10/21/24 11:17
Vital Signs
Temp Pulse Resp BP Pulse Ox
98 F 83 18 126/85 94
10/21/24 11:17 10/21/24 11:17 10/21/24 11:17 10/21/24 11:17 10/21/24 11:17
Intake & Output
10/19/24 10/20/24 10/21/24 10/22/24
07:59 07:59 07:59 07:59
Intake Total 240 / 240 1140 / 1140 480 / 480
Output Total 975 / 975 650 / 650
Balance -735 / -735 490 / 490 480 / 480
Physical Exam
Physical Exam
GEN: No distress, awake, alert, oriented x3
HEENT: supple, anicteric, mmm, eomi
LUNGS: CTA B/L, no wheezes
CV: Reg, S1/S2, no murmur
ABD: soft, BS+, NT/ND
EXT: No cyanosis, clubbing, edema
NEURO: Gross non-focal
SKIN: Warm, pink, dry. No rash
--- NOTE | 2024-10-21 12:10 | W.PN.PUL3 ---
Today's Communication / Plan
-
- Increase Solu-Medrol to 40 mg IV twice a day
- Continue DuoNeb and budesonide as ordered
Assessment
-
Patient is a very pleasant 73 old gentleman with questionable history of COPD who presented to the hospital with cough and some confusion going on for few days. Patient reports that the cough started with some runny nose, nonproductive and has been
associated with wheezing. He does not report any similar episode in the last 1 year. Patient reports that he was given a diagnosis of COPD couple of years ago and takes Symbicort at home along with as needed albuterol. Usually he takes albuterol
only 2-3 times a week but lately since he got sick he has been using it multiple times every day without significant improvement. In the emergency room workup included a CT chest which was negative for pulmonary embolism or infiltrate but showed
mediastinal and hilar lymphadenopathy. Pulmonary consultation was requested for further input.
#1. Acute exacerbation of hyperreactive airway disease, suspect asthma exacerbation. Patient smoked only for about a year and a half and does not have any emphysematous changes on imaging. Less likely has significant COPD. Suspect patient might
have underlying asthma.
-Hold Symbicort
-Continue DuoNeb 4 times daily and budesonide twice daily scheduled
-With persistent wheezing, increase Solu-Medrol 40 mg IV to BID
-Post discharge, patient will need pulmonary function testing along with lung volumes, bronchodilator responsiveness and 6-minute walk test, will arrange that as outpatient
-Outpatient pulmonary follow-up
#2. Acute bronchitis. No definitive pulmonary infiltrates noted on imaging. CT scan reviewed and is not suggestive of interstitial lung disease based on radiological features.
-Can continue doxycycline for about 5 days
#3. Mediastinal and Hilar lymphadenopathy. CT scan reviewed and is suggestive of paratracheal and subcarinal lymphadenopathy along with right hilar lymph node enlargement. Right hilar is almost at 3.1 cm which is somewhat concerning. These
changes could be reactive to an infection but need close monitoring for other etiologies including malignancy.
-Continue treatment for acute bronchitis
-Will plan a 6 to 8-week follow-up CT scan as outpatient, if lymph node still enlarged, will need EBUS-TBNA. I updated the patient and her daughter at bedside regarding this abnormal finding and need for close follow-up as outpatient
-CT abdomen reviewed, no extrathoracic lymphadenopathy noted
Total time spent on this consultation/encounter _32___ minutes which includes review of history, physical exam, medications, laboratory data, personal review of imaging, extensive review of outpatient records, discussion with care team and
respiratory therapy.
Data:
CT CHEST 10/2024: 1. Mildly enlarged mediastinal lymph nodes measuring up to 1.4 cm in the low left paratracheal region and 1.1 cm short axis diameter in the subcarinal region. Right hilar lymphadenopathy measures up to 3.1 cm. Mild left hilar
lymphadenopathy. These lymph nodes are increased from prior.
2. No suspicious pulmonary nodules, areas of airspace disease, pleural or pericardial effusions. Heart is not enlarged. Mild to moderate coronary artery calcifications.
3. No PE
CXR 10/2024: Unremarkable
Exercise Stress test 02/2024: Negative for Ischemia
ECHO 02/2024: Normal left ventricular size, wall thickness and systolic function. No regional
wall motion abnormalities are seen. LV ejection fraction is 60-65% by Monsalve's
method of discs. Normal diastolic function.
Normal right ventricular size and function.
Mild mitral regurgitation.
Mild to moderate tricuspid regurgitation. Estimated pulmonary artery pressure
of 35-40 mmHg, assuming a right atrial pressure of 3 mmHg.
Compared to previous echo 09/04/2015, the tricuspid regurgitation is increased
from trace to mild-moderate.
Subjective Data
-
Date of Service:
Date of Service: October 21, 2024
Subjective:
Patient reports that he is feeling essentially unchanged. Continues to have wheezing.
Review of Systems
Genitourinary: Other (All 14 systems reviewed and negative except as stated above in the history of present illness.)
Objective Data
Data Reviewed
Vital Signs / I&O / Oxygen:
Vital Signs
Temp Pulse Resp BP Pulse Ox
98 F 83 18 126/85 94
10/21/24 11:17 10/21/24 11:17 10/21/24 11:17 10/21/24 11:17 10/21/24 11:17
Intake and Output
10/20/24 10/21/24 10/22/24
06:59 06:59 06:59
Intake Total 240 / 240 1140 / 1140 480 / 480
Output Total 975 / 975 650 / 650
Balance -735 / -735 490 / 490 480 / 480
SaO2 94
Nasal Cannula flow liters per 4
minute
Physical Exam
General: Comfortable
HEENT: Normocephalic
Cardiovascular: S1-S2
Respiratory: Wheeze (Bilateral diffuse wheezing, unchanged) and Non-Labored Respirations
GI: Soft and Non Distended
Neurology: Awake and Alert
Skin: Warm
Labs/Micro/Reports
Lab Data
10/20/24 06:56
10/21/24 06:00
Microbiology
10/20/24 00:49 Sputum Respiratory Culture - Preliminary
Usual Respiratory Katie
10/20/24 00:49 Sputum Gram Stain - Preliminary
10/19/24 13:27 Nasal Swab Influenza Types A & B (MARI) - Final
Negative for Influenza A & B, NAAT
Negative results must be combined with clinical observations
and patient history.
Nucleic Acid Amplification test (NAAT)performed on the
[employer] platform.
[2024-10-21] MEDS: DUONEB INH (15:09)
[2024-10-21] MEDS: TOPROL XL 12.5 MG PO (15:17)
--- NOTE | 2024-10-21 15:43 | CON.NEURO ---
Neuro Assessment/Plan
Assessment
clinically this is a fully resolved TIA, in the setting of paroxysmal Afib so probably embolic etiology and not vascular
CHADS2-VASc of 2 for TIA
Plan
Eliquis 5 mg BID
check lipid panel, Ha1c
MRI brain, patient wants even though I recommend anticoagulation whether or not stroke is seen
Consultation
Order
Date of Consultation: 10/21/24
Requesting Provider:
Reason for Consult:
Subjective/Objective
Subjective Data
Date of Service: October 21, 2024
Objective Data
Vital Signs
Temp Pulse Resp BP Pulse Ox
36.8 C 90 18 128/86 96
10/21/24 15:26 10/21/24 15:26 10/21/24 15:26 10/21/24 15:26 10/21/24 15:26
Lab Results
10/20/24 06:56
10/21/24 06:00
Sodium 138 mmol/L (135-145) 10/21/24 06:00
Potassium 3.6 mmol/L (3.5-5.1) 10/21/24 06:00
BUN 25 mg/dl (9-20) H 10/21/24 06:00
Glucose 117 mg/dl (70-99) H 10/21/24 06:00
Calcium 9.3 mg/dl (8.4-10.2) 10/21/24 06:00
Phosphorus 3.9 mg/dl (2.5-4.5) 10/21/24 06:00
Vitamin B12 817 pg/ml (239-931) 10/21/24 06:00
Ur Buprenorphine Negative (Negative) 10/19/24 17:05
Patient Allergies
Sulfa (Sulfonamide Antibiotics) Allergy (Verified 10/19/24 13:25)
depression
Physical Exam
-
AAOx3, speech clear, language intact
VFF, EOMI, face symmetric
full strength b/l UE/LE
sensation intact to touch/temp, moderate vibratory loss
Medications
-
Active Medications
Generic Name Dose Route Start Last Admin
Trade Name Freq PRN Reason Stop Dose Admin
Acetaminophen 650 mg 10/19/24 22:07
Acetaminophen 325 Mg Tablet PO 11/16/24 22:06
Q4HPRN PRN
mild pain/CUETO/temp> 100.4F
Albuterol 2 puff 10/19/24 22:07 10/20/24 07:25
Albuterol Hfa [90 Mcg/Dose] Inhaler INH 2 puff
R Q6HPRN PRN Administration
sob
Protocol
Albuterol/Ipratropium 3 ml 10/20/24 12:00 10/21/24 15:09
Ipratropium 0.5/Albuterol 3 Mg (3 Ml Ampul) INH Not Given
R QID ADOLFO
Protocol
Apixaban 5 mg 10/21/24 20:00
Apixaban (Eliquis) 5 Mg Tablet PO 11/18/24 19:59
BID ADOLFO
Artificial Tears 1 drops 10/19/24 22:07
Artificial Tears Pf (Refresh) 10 Drop Droperette BOTH EYES
Q6HPRN PRN
dry eyes
Budesonide 0.5 mg 10/20/24 20:00 10/21/24 07:24
Budesonide (Pulmicort Respules) 0.5 Mg/2 Ml INH 0.5 mg
R BID ADOLFO Administration
Protocol
Budesonide/Formoterol Fumarate 2 puff 10/19/24 22:07 10/20/24 07:24
Symbicort Inhaler 80/4.5 INH 11/16/24 22:06 2 puff
R BID ADOLFO Administration
Protocol
Diphenhydramine HCl 25 mg 10/21/24 22:00
Diphenhydramine 25 Mg Capsule PO 11/18/24 21:59
HS ADOLFO
Doxycycline Hyclate 100 mg 10/20/24 20:00 10/21/24 09:17
Doxycycline 100 Mg Capsule PO 100 mg
Q12 ADOLFO Administration
Guaifenesin 600 mg 10/21/24 10:00 10/21/24 09:29
Guaifenesin 600 Mg Extended Release Tablet PO 11/18/24 09:59 600 mg
Q12 ADOLFO Administration
Levothyroxine Sodium 137 mcg 10/20/24 06:00 10/21/24 05:46
Levothyroxine 137 Mcg Tablet PO 11/17/24 05:59 137 mcg
DAILY@0600 ADOLFO Administration
Melatonin 10 mg 10/21/24 20:00
Melatonin 5 Mg Tablet PO 11/18/24 19:59
DAILY@2000 ADOLFO
Methylprednisolone Sodium Succinate 40 mg 10/21/24 20:00
Methylprednisolone Pf 40 Mg/Ml Vial IV 11/18/24 19:59
BID ADOLFO
Metoprolol Succinate 12.5 mg 10/21/24 15:00 10/21/24 15:17
Metoprolol 12.5 Mg Extended Release Dose (1/2 Of 25 Mg Xl Tablet) PO 11/18/24 14:59 12.5 mg
DAILY ADOLFO Administration
Montelukast Sodium 10 mg 10/19/24 22:07 10/20/24 20:53
Montelukast Sodium 10 Mg Tablet PO 11/16/24 22:06 10 mg
HS ADOLFO Administration
Sodium Chloride 0 flush 10/19/24 23:00
Sodium Chloride 0.9% (Flush) Syringe IV 11/16/24 22:59
PER PROTOCOL ADOLFO
Vitamin B Complex/Vitamin C 1 caplet 10/20/24 22:40 10/20/24 22:42
Vitamin B Complex With Vitamin C Caplet PO 11/17/24 22:39 1 caplet
HS ADOLFO Administration
Home Medications
�Medication �Instructions �Recorded
fluticasone propionate 50 2 spray intranasal DAILY 02/28/23
mcg/actuation nasal
spray,suspension
levothyroxine 137 mcg tablet 137 mcg PO DAILY 02/28/23
montelukast 10 mg tablet 10 mg PO HS 02/28/23
budesonide-formoterol HFA 80 2 puff inhalation R BID 02/02/24
mcg-4.5 mcg/actuation aerosol
inhaler (Symbicort)
vitamin A-vitamin C-vit E-min 1 tab PO DAILY 02/02/24
tablet
testosterone 1 % (50 mg/5 gram) 1 packet transdermal DAILY upper 02/25/24
transdermal gel packet torso
albuterol sulfate 90 mcg/actuation 2 puff inhalation R Q6HPRN PRN sob 10/19/24
aerosol inhaler
peg 400-propylene glycol (PF) 0.4 1 drp BOTH EYES Q6HPRN PRN dry eyes 10/19/24
%-0.3 % eye drops in a dropperette
(Systane (PF))
vitamin B complex 1 tab PO DAILY 10/19/24
vitamin D3 125 mcg (5,000 1 cap PO DAILY 10/19/24
unit)-vitamin K2 100 mcg capsule
[2024-10-21] MEDS: ELIQUIS 5 MG PO (19:59)
[2024-10-21] MEDS: B COMPLEX w/VITAMIN C 1 CAPLET PO (20:02)
[2024-10-21] MEDS: SINGULAIR 10 MG PO (20:05)
[2024-10-21] MEDS: MELATONIN 10 MG PO (21:58)
[2024-10-22] VITALS (7 sets, daily range): BP systolic 96–148; BP diastolic 68–91; PULSE 69–84; O2SAT 94
[2024-10-22] MEDS: SYNTHROID 137 MCG PO (05:32)
[2024-10-22] MEDS: PULMICORT 0.5 MG INH ×2 (07:26→20:22)
[2024-10-22] MEDS: DUONEB 3 ML INH ×4 (07:26→20:21)
[2024-10-22] MEDS: TOPROL XL 12.5 MG PO (07:42)
[2024-10-22] MEDS: VIBRAMYCIN 100 MG PO ×2 (07:42→20:10)
[2024-10-22] MEDS: SOLU-MEDROL PF 40 MG IV ×2 (07:42→20:10)
[2024-10-22] MEDS: ELIQUIS 5 MG PO ×2 (07:42→20:10)
[2024-10-22] MEDS: MUCINEX 600 MG PO ×2 (07:42→20:10)
[2024-10-22 08:29] LABS: Blood Urea Nitrogen 27 mg/dl (9-20); Calcium 9.2 mg/dl (8.4-10.2); Carbon Dioxide 22 mmol/L (22-30); Chloride 104 mmol/L (98-107); Estimated Creatinine Clearance 75 ml/min; Glucose 124 mg/dl (70-99); HDL Cholesterol 86 mg/dl; LDL Cholesterol, Calculated 93 mg/dl; Potassium 4.6 mmol/L (3.5-5.1); Sodium 137 mmol/L (135-145); Total Cholesterol 194 mg/dl (50-199); Triglyceride 77 mg/dl (10-149); Very Low Density Lipoprotein 15 mg/dl (0-30); eGFR > 60.00
--- NOTE | 2024-10-22 08:45 | W.PN.HOSP.TC ---
Today's Communication/Plan
-
see bold
Assessment / Plan
Assessment / Plan
HPI: 73-year-old male with a past medical history of asthma, hypothyroidism, and GERD who presents with cough and confusion for several days. He denies shortness of breath, but was found to be hypoxic in the ER, satting 91% on room air. He is
currently requiring 93% on 2 L. His confusion is currently improved. He admits to ingesting THC Gummies recently. His sodium is noted to be 127. CT chest negative for PE, negative for pneumonia.
#Acute hypoxic respiratory insufficiency
#Acute exacerbation of hyperreactive airway disease, probable asthma exacerbation
#Acute bronchitis
#COPD ruled out
#ILD ruled out
Patient only smoked for 1 year, he does not have COPD
Flu/covid neg
Appreciate pulmonology input, continue IV steroids, bronchodilators, doxycycline for anti-inflammatory effect
Hypoxia resolved, currently 95% on room air, was requiring 2 L
#TIA
#Transient facial droop
#Dysarthria
#Confusion
Appreciate neurology input, clinically this is a fully resolved TIA in the setting of paroxysmal atrial fibrillation
Brain MRI negative for acute stroke, LDL 93, HgbA1C 5.2
Start atorvastatin 40 mg at bedtime
Repeat echo 10/21/2024 reviewed
#Paroxysmal atrial fibrillation on telemetry�new diagnosis
Changed from Toprol XL to diltiazem by cardiology
Started on Eliquis 5 mg twice a day by neurology
#Weakness
#Confusion
Suspect secondary to hyponatremia of 127 upon admission versus THC Gummies
B12 levels, folic acid normal
Mentation close to baseline
PT rec HH
Recommend outpatient neuropsychiatric testing
#Reported syncope
and patient's PCP reports syncope
Seen by cardiology and neurology as above
#Mediastinal and hilar lymphadenopathy
Monitor
#Pancytopenia
Monitor
#Hyponatremia
TSH reviewed, a.m. cortisol normal, urine studies reviewed
Suspect due to pulmonary process, sodium normal, was 127 upon admission
#Hypothyroidism
TSH mildly low at 0.32, free T4 normal
Currently on levothyroxine 137 mcg daily
DVT prophylaxis�Lovenox
Full code
Updated daughter twice on 10/20
Updated domestic partner 10/21
Updated daughter on
Total time spent to see the patient on the floor, examine the patient, review data and lab results, discuss treatment plan with patient, nursing staff around 43 minutes.
Physical Exam
General: No acute distress
HEENT: Normocephalic, Atraumatic, EOMI, MMM
Respiratory: Scattered wheezing
Cardiac: Normal S1/S2, Regular Rate and Rhythm
GI: Soft, Nontender, Nondistended, Normal Bowel Sounds
Extremities: No Clubbing, Cyanosis, or Edema
Neuro: Nonfocal/Grossly Intact
Anticipated Discharge: Within 24 hours
Subjective/Interval History
-
Date of Service: October 22, 2024
Patient reports feeling tight in his chest from his asthma. Overall though he does feel better. His weakness is resolved. No fever, no vomiting.
Objective Data
-
Labs:
Laboratory Results
10/22/24
07:13
Sodium 137
Potassium 4.6 D
Chloride 104
Carbon Dioxide 22
BUN 27 H
Creatinine 1.0
Glucose 124 H
Calcium 9.2
Vital Signs:
Vital Signs
Temp Pulse Resp BP Pulse Ox
97.6 F 69 18 119/75 93
10/22/24 07:20 10/22/24 07:42 10/22/24 07:28 10/22/24 07:42 10/22/24 07:28
I&O
10/21/24 10/22/24 10/23/24
06:59 06:59 06:59
Intake Total 1140 / 1140 1080 / 1080 240 / 240
Output Total 650 / 650
Balance 490 / 490 1080 / 1080 240 / 240
--- NOTE | 2024-10-22 09:21 | W.PN.PUL3 ---
Today's Communication / Plan
-
-Chest x-ray 2 view
-Continue scheduled DuoNeb, budesonide as well as IV Solu-Medrol
Assessment
-
Patient is a very pleasant 73 old gentleman with questionable history of COPD who presented to the hospital with cough and some confusion going on for few days. Patient reports that the cough started with some runny nose, nonproductive and has been
associated with wheezing. He does not report any similar episode in the last 1 year. Patient reports that he was given a diagnosis of COPD couple of years ago and takes Symbicort at home along with as needed albuterol. Usually he takes albuterol
only 2-3 times a week but lately since he got sick he has been using it multiple times every day without significant improvement. In the emergency room workup included a CT chest which was negative for pulmonary embolism or infiltrate but showed
mediastinal and hilar lymphadenopathy. Pulmonary consultation was requested for further input.
#1. Acute exacerbation of hyperreactive airway disease, suspect asthma exacerbation. Patient smoked only for about a year and a half and does not have any emphysematous changes on imaging. Less likely has significant COPD. Suspect patient might
have underlying asthma.
-Hold Symbicort while getting nebulized steroids and bronchodilators
-Continue DuoNeb 4 times daily and budesonide twice daily scheduled
-With persistent wheezing, continue Solu-Medrol 40 mg IV twice daily
-Post discharge, patient will need pulmonary function testing along with lung volumes, bronchodilator responsiveness and 6-minute walk test, will arrange that as outpatient
-Outpatient pulmonary follow-up
#2. Acute bronchitis. No definitive pulmonary infiltrates noted on imaging. CT scan reviewed and is not suggestive of interstitial lung disease based on radiological features.
-Can continue doxycycline for about 5 days
--Repeat chest x-ray two-view today
#3. Mediastinal and Hilar lymphadenopathy. CT scan reviewed and is suggestive of paratracheal and subcarinal lymphadenopathy along with right hilar lymph node enlargement. Right hilar is almost at 3.1 cm which is somewhat concerning. These
changes could be reactive to an infection but need close monitoring for other etiologies including malignancy.
-Continue treatment for acute bronchitis
-Will plan a 6 to 8-week follow-up CT scan as outpatient, if lymph node still enlarged, will need EBUS-TBNA. I updated the patient and her daughter at bedside regarding this abnormal finding and need for close follow-up as outpatient
-CT abdomen reviewed, no extrathoracic lymphadenopathy noted
Total time spent on this consultation/encounter _42___ minutes which includes review of history, physical exam, medications, laboratory data, personal review of imaging, extensive review of outpatient records, discussion with care team and
respiratory therapy.
Data:
CT CHEST 10/2024: 1. Mildly enlarged mediastinal lymph nodes measuring up to 1.4 cm in the low left paratracheal region and 1.1 cm short axis diameter in the subcarinal region. Right hilar lymphadenopathy measures up to 3.1 cm. Mild left hilar
lymphadenopathy. These lymph nodes are increased from prior.
2. No suspicious pulmonary nodules, areas of airspace disease, pleural or pericardial effusions. Heart is not enlarged. Mild to moderate coronary artery calcifications.
3. No PE
CXR 10/2024: Unremarkable
ECHO 10/2024: 1. Left ventricle: Normal size and function with an estimated ejection
fraction is 66%. A false tendon is noted at the LV apex. Normal diastolic
function.
2. Right ventricle: Normal
3. Atria: Normal
4. Mitral valve: Mild mitral regurgitation
5. Aortic valve: No aortic stenosis or aortic insufficiency
6. Tricuspid valve: Mild to moderate tricuspid regurgitation with estimated
pulmonary artery systolic pressures of 30-35 mmHg
7. When compared to the most recent echocardiogram from 02/24/2024 there has
been no significant change
Exercise Stress test 02/2024: Negative for Ischemia
ECHO 02/2024: Normal left ventricular size, wall thickness and systolic function. No regional
wall motion abnormalities are seen. LV ejection fraction is 60-65% by Monsalve's
method of discs. Normal diastolic function.
Normal right ventricular size and function.
Mild mitral regurgitation.
Mild to moderate tricuspid regurgitation. Estimated pulmonary artery pressure
of 35-40 mmHg, assuming a right atrial pressure of 3 mmHg.
Compared to previous echo 09/04/2015, the tricuspid regurgitation is increased
from trace to mild-moderate.
Subjective Data
-
Date of Service:
Date of Service: October 22, 2024
Subjective:
Patient reports feeling marginally better.
Review of Systems
Genitourinary: Other (All 14 systems reviewed and negative except as stated above in the history of present illness.)
Objective Data
Data Reviewed
Vital Signs / I&O / Oxygen:
Vital Signs
Temp Pulse Resp BP Pulse Ox
97.6 F 69 18 119/75 93
10/22/24 07:20 10/22/24 07:42 10/22/24 07:28 10/22/24 07:42 10/22/24 07:28
Intake and Output
10/21/24 10/22/24 10/23/24
06:59 06:59 06:59
Intake Total 1140 / 1140 1080 / 1080 240 / 240
Output Total 650 / 650
Balance 490 / 490 1080 / 1080 240 / 240
SaO2 93
Nasal Cannula flow liters per 4
minute
Physical Exam
General: Comfortable
HEENT: Normocephalic
Cardiovascular: S1-S2
Respiratory: Wheeze (Bilateral diffuse wheezing, minimally improving) and Non-Labored Respirations
GI: Soft and Non Distended
Neurology: Awake and Alert
Skin: Warm
Labs/Micro/Reports
Lab Data
10/20/24 06:56
10/22/24 07:13
Microbiology
10/20/24 00:49 Sputum Respiratory Culture - Final
Usual Respiratory Katie
10/20/24 00:49 Sputum Gram Stain - Final
10/19/24 13:27 Nasal Swab Influenza Types A & B (MARI) - Final
Negative for Influenza A & B, NAAT
Negative results must be combined with clinical observations
and patient history.
Nucleic Acid Amplification test (NAAT)performed on the
[employer] platform.
--- NOTE | 2024-10-22 09:35 | W.PN.CARDCBS ---
Addendum entered and electronically signed by Amilcar Reyna MD 10/22/24 12:34:
I saw and examined the patient.
The Retail Advertising Account Executive's note was reviewed and I agree with the note.
Comment: Briefly, 73-year-old man who presented following episode of unresponsiveness/syncope and is being treated for COPD/asthma exacerbation
Cardiology was asked to evaluate given his history of syncope and reportedly has had multiple episodes in the past
He was monitored on telemetry here was identified as having paroxysmal atrial fibrillation which is a new diagnosis
Recommend Eliquis on discharge and he seems to be agreeable
Given COPD/asthma exacerbation recommend using diltiazem as AV nasir kurtis rather than metoprolol
We will sign off, please recall as needed
Outpatient follow-up to be arranged
Original Note:
Today's Communication / Plan
-
transition toprol to cardizem
eliquis 5mg BID
will arrange OP cardiac follow up
Impression / Plan
-
Primary Garage Door Technician: none prior to admission
PCP: Dr. Perez
Assessment:
Presentation with unresponsive/syncopal events
Confusion
Hyponatremia
Acute hypoxic respiratory insufficiency
COPD/asthma with acute exacerbation
PAF, new diagnosis
Mediastinal and hilar lymphadenopathy by imaging
Hypothyroidism
Macrocytic B12 Anemia
Orthostasis
Holter monitor 02/17/24: Predominantly sinus rhythm, no sustained arrhythmias, no pauses greater than 2.5 seconds
Echocardiogram 02/24/2024: EF 60 to 65%, no regional wall motion abnormalities noted, mild MR, mild to moderate TR, PAP 35 to 40 mmHg
Treadmill stress test 03/01/2024: No acute evidence of ischemia at 6.5 METS of activity
ECHO 10/21/2024: EF 66%, false tendon noted at LV apex, mild MR, mild to moderate TR with PASP 30 to 35 mmHg
Plan:
- presented with 2 unresponsive events with associated confusion.
- Noted to have paroxysmal atrial fibrillation, new diagnosis this admission. Started on Eliquis per neurology. Had brain MRI which was negative for acute abnormality.
- Was started on Toprol 12.5 mg daily. Being treated for acute asthma/COPD exacerbation per primary service, and remains with wheezing on exam today, so we will transition to Cardizem CD 120 mg daily for discharge
- Was orthostatic by vital signs 10/20, improved as of 10/21. Continue use of compression stockings
- ECHO 10/21 with preserved EF, no significant change compared to prior, reviewed with patient 10/22
- Will arrange outpatient cardiac follow-up
Progress Note - Garage Door Technician
Subjective
Date of Service: October 22, 2024
No palpitations overnight.
Objective
Labs:
10/20/24 06:56
10/22/24 07:13
Labs
Hgb 13.5 g/dL (13.0-18.0) 10/20/24 06:56
Hct 37.6 % (39.0-52.0) L 10/20/24 06:56
Plt Count 120 10^3/uL (130-400) L 10/20/24 06:56
Sodium 137 mmol/L (135-145) 10/22/24 07:13
Potassium 4.6 mmol/L (3.5-5.1) D 10/22/24 07:13
BUN 27 mg/dl (9-20) H 10/22/24 07:13
Creatinine 1.0 mg/dL (0.7-1.3) 10/22/24 07:13
Glucose 124 mg/dl (70-99) H 10/22/24 07:13
Vital Signs and I&O:
Vital Signs
Temp Pulse Resp BP Pulse Ox
97.6 F 69 18 119/75 93
10/22/24 07:20 10/22/24 07:42 10/22/24 07:28 10/22/24 07:42 10/22/24 07:28
Vital Signs
Temp Pulse Resp BP Pulse Ox
97.6 F 69 18 119/75 93
10/22/24 07:20 10/22/24 07:42 10/22/24 07:28 10/22/24 07:42 10/22/24 07:28
Intake & Output
10/20/24 10/21/24 10/22/24 10/23/24
07:59 07:59 07:59 07:59
Intake Total 240 / 240 1140 / 1140 1080 / 1080 240 / 240
Output Total 975 / 975 650 / 650
Balance -735 / -735 490 / 490 1080 / 1080 240 / 240
Physical Exam
Physical Exam
GEN: No distress, awake, alert, oriented x3
HEENT: supple, anicteric, mmm, eomi
LUNGS: CTA B/L, no wheezes
CV: Reg, S1/S2, no murmur
ABD: soft, BS+, NT/ND
EXT: No cyanosis, clubbing, edema
NEURO: Gross non-focal
SKIN: Warm, pink, dry. No rash
[2024-10-22 10:18] LABS: Glycohemoglobin (HgbA1c) 5.2 % (4.0-5.6)
--- NOTE | 2024-10-22 12:23 | CM ---
Received consult for VN services. Met with patient who is agreeable and selected VN. Put referral in for patient.
Plan: Case management will continue to follow and assist with discharge planning. Home with VN.
[2024-10-22] MEDS: LIPITOR 40 MG PO (17:10)
[2024-10-22] MEDS: B COMPLEX w/VITAMIN C 1 CAPLET PO (20:09)
[2024-10-22] MEDS: SINGULAIR 10 MG PO (20:10)
[2024-10-22] MEDS: MELATONIN 10 MG PO (20:10)
[2024-10-23] VITALS (7 sets, daily range): BP systolic 117–150; BP diastolic 72–95; PULSE 81–93
[2024-10-23] MEDS: SYNTHROID 137 MCG PO (05:42)
[2024-10-23] MEDS: DUONEB 3 ML INH ×4 (07:17→19:36)
[2024-10-23] MEDS: PULMICORT 0.5 MG INH ×2 (07:17→19:36)
[2024-10-23] MEDS: SOLU-MEDROL PF 40 MG IV (08:28)
[2024-10-23] MEDS: MUCINEX 600 MG PO ×2 (08:29→20:24)
[2024-10-23] MEDS: VIBRAMYCIN 100 MG PO ×2 (08:29→20:24)
[2024-10-23] MEDS: ELIQUIS 5 MG PO ×2 (08:29→20:25)
[2024-10-23] MEDS: CARDIZEM CD 120 MG PO (08:29)
--- NOTE | 2024-10-23 08:40 | W.PN.HOSP.TC ---
Today's Communication/Plan
-
see bold
Assessment / Plan
Assessment / Plan
HPI: 73-year-old male with a past medical history of asthma, hypothyroidism, and GERD who presents with cough and confusion for several days. He denies shortness of breath, but was found to be hypoxic in the ER, satting 91% on room air. He is
currently requiring 93% on 2 L. His confusion is currently improved. He admits to ingesting THC Gummies recently. His sodium is noted to be 127. CT chest negative for PE, negative for pneumonia.
#Acute hypoxic respiratory insufficiency
#Acute exacerbation of hyperreactive airway disease, probable asthma exacerbation
#Acute bronchitis
#COPD ruled out
#ILD ruled out
Patient only smoked for 1 year, he does not have COPD
Flu/covid neg
Appreciate pulmonology input, continue IV steroids, bronchodilators, doxycycline for anti-inflammatory effect
Hypoxia resolved, currently 95% on room air, was requiring 2 L
#TIA
#Transient facial droop
#Dysarthria
#Confusion
Appreciate neurology input, clinically this is a fully resolved TIA in the setting of paroxysmal atrial fibrillation
Brain MRI negative for acute stroke, LDL 93, HgbA1C 5.2
Started atorvastatin 40 mg at bedtime
Repeat echo 10/21/2024 reviewed
#Paroxysmal atrial fibrillation on telemetry�new diagnosis
Changed from Toprol XL to diltiazem by cardiology
Started on Eliquis 5 mg twice a day by neurology
#Weakness
#Confusion
Suspect secondary to hyponatremia of 127 upon admission versus THC Gummies
B12 levels, folic acid normal
Mentation close to baseline
PT rec HH
Recommend outpatient neuropsychiatric testing
#Reported syncope
and patient's PCP reports syncope
Seen by cardiology and neurology as above
#Mediastinal and hilar lymphadenopathy
Monitor
#Pancytopenia
Monitor
#Hyponatremia
TSH reviewed, a.m. cortisol normal, urine studies reviewed
Suspect due to pulmonary process, sodium normal, was 127 upon admission
#Hypothyroidism
TSH mildly low at 0.32, free T4 normal
Currently on levothyroxine 137 mcg daily
DVT prophylaxis�Lovenox
Full code
Updated daughter twice on 10/20
Updated domestic partner 10/21
Updated daughter on phone 10/22
Updated daughter at bedside 10/23
Total time spent to see the patient on the floor, examine the patient, review data and lab results, discuss treatment plan with patient, nursing staff around 40 minutes.
Physical Exam
General: No acute distress
HEENT: Normocephalic, Atraumatic, EOMI, MMM
Respiratory: Scattered wheezing
Cardiac: Normal S1/S2, Regular Rate and Rhythm
GI: Soft, Nontender, Nondistended, Normal Bowel Sounds
Extremities: No Clubbing, Cyanosis, or Edema
Neuro: Nonfocal/Grossly Intact
Anticipated Discharge: Within 24 hours
Subjective/Interval History
-
Date of Service: October 23, 2024
Patient reports his shortness of breath and congestion are better. No chest pain, no shortness of breath. No fever, no vomiting.
Objective Data
-
Vital Signs:
Vital Signs
Temp Pulse Resp BP Pulse Ox
97.4 F 78 14 131/87 96
10/23/24 03:37 10/23/24 08:29 10/23/24 07:21 10/23/24 08:29 10/23/24 07:21
I&O
10/22/24 10/23/24 10/24/24
06:59 06:59 06:59
Intake Total 1080 / 1080 1440 / 1440
Balance 1080 / 1080 1440 / 1440
--- NOTE | 2024-10-23 14:36 | W.PN.PUL3 ---
Today's Communication / Plan
-
Improving, remains stable on RA
Will decrease IV steroid dose today, can transition to PO taper in AM if improving
Encouraged OOB/PT
Doxy x 5 days
OP FU recommended
Discharge planning in next 24 hours if patient is improving
Assessment
-
Patient is a very pleasant 73 old gentleman with questionable history of COPD who presented to the hospital with cough and some confusion going on for few days. Patient reports that the cough started with some runny nose, nonproductive and has been
associated with wheezing. He does not report any similar episode in the last 1 year. Patient reports that he was given a diagnosis of COPD couple of years ago and takes Symbicort at home along with as needed albuterol. Usually he takes albuterol
only 2-3 times a week but lately since he got sick he has been using it multiple times every day without significant improvement. In the emergency room workup included a CT chest which was negative for pulmonary embolism or infiltrate but showed
mediastinal and hilar lymphadenopathy. Pulmonary consultation was requested for further input.
Acute exacerbation of hyperreactive airway disease, suspect asthma exacerbation.
Acute bronchitis.
Mediastinal and Hilar lymphadenopathy.
SOB/wheezing
Conditions present TELEPHONE MECHANIC
Hypothyroidism, unspecified
Testicular hypofunction
History of primary IgA nephropathy
Macrocytosis without anemia
Allergic rhinitis, unspecified
GERD without esophagitis
Mild intermittent asthma without complication
Plan
Stable on RA, has been ambulating without issue
Encouraged walking today
Patient smoked only for about a year and a half and does not have any emphysematous changes on imaging.
Less likely has significant COPD. Suspect patient might have underlying asthma.
Hold Symbicort while getting nebulized steroids and bronchodilators
Continue DuoNeb 4 times daily and budesonide twice daily scheduled
With persistent wheezing, continue Solu-Medrol 40 mg IV twice daily--will start to wean dose today
If doing well can transition to PO taper tomorrow
No definitive pulmonary infiltrates noted on imaging.
CT scan reviewed and is not suggestive of interstitial lung disease based on radiological features.
PCT negative
Can continue doxycycline for about 5 days or stop
Repeat chest x-ray two-view today reviewed without significant findings
CT scan reviewed and is suggestive of paratracheal and subcarinal lymphadenopathy along with right hilar lymph node enlargement.
Right hilar is almost at 3.1 cm which is somewhat concerning. These changes could be reactive to an infection but need close monitoring for other etiologies including malignancy.
Continue treatment for acute bronchitis
Will plan a 6 to 8-week follow-up CT scan as outpatient, if lymph node still enlarged, will need EBUS-TBNA--reviewed again
I updated the patient and her daughter at bedside regarding this abnormal finding and need for close follow-up as outpatient
CT abdomen reviewed, no extrathoracic lymphadenopathy noted
Post discharge, patient will need pulmonary function testing along with lung volumes, bronchodilator responsiveness and 6-minute walk test, will arrange that as outpatient
Outpatient pulmonary follow-up
Data:
CT CHEST 10/2024: 1. Mildly enlarged mediastinal lymph nodes measuring up to 1.4 cm in the low left paratracheal region and 1.1 cm short axis diameter in the subcarinal region. Right hilar lymphadenopathy measures up to 3.1 cm. Mild left hilar
lymphadenopathy. These lymph nodes are increased from prior.
2. No suspicious pulmonary nodules, areas of airspace disease, pleural or pericardial effusions. Heart is not enlarged. Mild to moderate coronary artery calcifications.
3. No PE
CXR 10/2024: Unremarkable
ECHO 10/2024: 1. Left ventricle: Normal size and function with an estimated ejection fraction is 66%. A false tendon is noted at the LV apex. Normal diastolic function.
2. Right ventricle: Normal
3. Atria: Normal
4. Mitral valve: Mild mitral regurgitation
5. Aortic valve: No aortic stenosis or aortic insufficiency
6. Tricuspid valve: Mild to moderate tricuspid regurgitation with estimated pulmonary artery systolic pressures of 30-35 mmHg
7. When compared to the most recent echocardiogram from 02/24/2024 there has been no significant change
Exercise Stress test 02/2024: Negative for Ischemia
ECHO 02/2024: Normal left ventricular size, wall thickness and systolic function. No regional wall motion abnormalities are seen. LV ejection fraction is 60-65% by Monsalve's method of discs. Normal diastolic function.
Normal right ventricular size and function. Mild mitral regurgitation. Mild to moderate tricuspid regurgitation. Estimated pulmonary artery pressure of 35-40 mmHg, assuming a right atrial pressure of 3 mmHg. Compared to previous echo 09/04/2015,
the tricuspid regurgitation is increased from trace to mild-moderate.
Total time spent on this consultation/encounter _42___ minutes which includes review of history, physical exam, medications, laboratory data, personal review of imaging, extensive review of outpatient records, discussion with care team and
respiratory therapy.
Subjective Data
-
Date of Service:
Date of Service: October 23, 2024
Chief Complaint: Pulmonary Follow Up
Subjective:
No new events ON, remains stable on RA
No new complaints, no cough noted
Objective Data
Data Reviewed
Vital Signs / I&O / Oxygen:
Vital Signs
Temp Pulse Resp BP Pulse Ox
97.4 F 78 18 150/95 95
10/23/24 11:26 10/23/24 11:26 10/23/24 11:26 10/23/24 11:26 10/23/24 11:26
Intake and Output
10/22/24 10/23/24 10/24/24
06:59 06:59 06:59
Intake Total 1080 / 1080 1440 / 1440
Balance 1080 / 1080 1440 / 1440
SaO2 95
Nasal Cannula flow liters per 4
minute
Physical Exam
General: Comfortable and Other (NAD)
HEENT: Normocephalic, Anicteric, Moist Mucous Membranes and Other (facial redness)
Cardiovascular: S1-S2 and Regular Rhythm
Respiratory: Clear and Non-Labored Respirations
GI: Soft, Non Distended and Non Tender
Neurology: Awake, Alert, Oriented and No Motor Deficits
Skin: Warm, Dry and Good Color
Labs/Micro/Reports
Lab Data
10/20/24 06:56
10/22/24 07:13
Microbiology
10/20/24 00:49 Sputum Respiratory Culture - Final
Usual Respiratory Katie
10/20/24 00:49 Sputum Gram Stain - Final
[2024-10-23] MEDS: LIPITOR 40 MG PO (17:44)
[2024-10-23] MEDS: B COMPLEX w/VITAMIN C 1 CAPLET PO (20:24)
[2024-10-23] MEDS: MELATONIN 10 MG PO (20:25)
[2024-10-23] MEDS: SINGULAIR 10 MG PO (20:25)
[2024-10-24 03:40] VITALS: BP 107/61
[2024-10-24] MEDS: SYNTHROID 137 MCG PO (05:57)
[2024-10-24] MEDS: PULMICORT 0.5 MG INH (07:12)
[2024-10-24] MEDS: DUONEB 3 ML INH ×4 (07:12→19:43)
[2024-10-24 07:26] VITALS: BP 125/76
--- NOTE | 2024-10-24 08:01 | W.PN.HOSP.TC ---
Today's Communication/Plan
-
Possible discharge tomorrow with continued clinical improvement
Assessment / Plan
Assessment / Plan
HPI: 73-year-old male with a past medical history of asthma, hypothyroidism, and GERD who presents with cough and confusion for several days. He denies shortness of breath, but was found to be hypoxic in the ER, satting 91% on room air. He is
currently requiring 93% on 2 L. His confusion is currently improved. He admits to ingesting THC Gummies recently. His sodium is noted to be 127. CT chest negative for PE, negative for pneumonia.
#Acute hypoxic respiratory insufficiency
#Acute exacerbation of hyperreactive airway disease, probable asthma exacerbation
#Acute bronchitis
#COPD ruled out
#ILD ruled out
Patient only smoked for 1 year, he does not have COPD
Flu/covid neg
Appreciate pulmonology input, patient feels better, but not well enough for discharge today
IV steroids changed to oral prednisone for tomorrow, 10/25
Status post doxycycline for 5 days, continue bronchodilators
Hypoxia resolved, currently 95% on room air, was requiring 2 L
#TIA
#Transient facial droop
#Dysarthria
#Confusion
Appreciate neurology input, clinically this is a fully resolved TIA in the setting of paroxysmal atrial fibrillation
Brain MRI negative for acute stroke, LDL 93, HgbA1C 5.2
Started atorvastatin 40 mg at bedtime
Repeat echo 10/21/2024 reviewed
#Paroxysmal atrial fibrillation on telemetry�new diagnosis
Changed from Toprol XL to diltiazem by cardiology
Started on Eliquis 5 mg twice a day by neurology
#Weakness
#Confusion
Suspect secondary to hyponatremia of 127 upon admission versus THC Gummies
B12 levels, folic acid normal
Mentation close to baseline
PT rec HH
Recommend outpatient neuropsychiatric testing
#Reported syncope
and patient's PCP reports syncope
Seen by cardiology and neurology as above
#Mediastinal and hilar lymphadenopathy
Monitor
#Pancytopenia
Monitor
#Hyponatremia
TSH reviewed, a.m. cortisol normal, urine studies reviewed
Suspect due to pulmonary process, sodium normal, was 127 upon admission
#Hypothyroidism
TSH mildly low at 0.32, free T4 normal
Currently on levothyroxine 137 mcg daily
DVT prophylaxis�Lovenox
Full code
Updated daughter at bedside 10/24
Total time spent to see the patient on the floor, examine the patient, review data and lab results, discuss treatment plan with patient, nursing staff around 45 minutes.
Physical Exam
General: No acute distress
HEENT: Normocephalic, Atraumatic, EOMI, MMM
Respiratory: Scattered wheezing
Cardiac: Normal S1/S2, Regular Rate and Rhythm
GI: Soft, Nontender, Nondistended, Normal Bowel Sounds
Extremities: No Clubbing, Cyanosis, or Edema
Neuro: Nonfocal/Grossly Intact
Anticipated Discharge: Within 24 hours
Subjective/Interval History
-
Date of Service: October 24, 2024
Patient denies shortness of breath. Does have some dyspnea with activity. His cough and congestion have not proved. No fever, no vomiting.
Objective Data
-
Vital Signs:
Vital Signs
Temp Pulse Resp BP Pulse Ox
98.3 F 68 18 107/61 97
10/24/24 03:40 10/24/24 03:40 10/24/24 03:40 10/24/24 03:40 10/24/24 03:40
I&O
10/23/24 10/24/24 10/25/24
06:59 06:59 06:59
Intake Total 1440 / 1440 960 / 960
Output Total 900 / 900
Balance 1440 / 1440 60 / 60
[2024-10-24] MEDS: SOLU-MEDROL PF 40 MG IV (08:34)
[2024-10-24] MEDS: CARDIZEM CD 120 MG PO (08:34)
[2024-10-24] MEDS: MUCINEX 600 MG PO ×2 (08:35→19:32)
[2024-10-24] MEDS: VIBRAMYCIN 100 MG PO (08:35)
[2024-10-24] MEDS: ELIQUIS 5 MG PO ×2 (08:35→19:32)
[2024-10-24 09:48] VITALS: BP 107/73; BP 109/75; BP 99/60; PULSE 79; PULSE 87; PULSE 90
--- NOTE | 2024-10-24 11:21 | W.PN.PUL3 ---
Today's Communication / Plan
-
Better today but still reports some BO
Will taper steroids to PO
Can d/c in AM if stable, he prefer to wait today
Daughter at bedside, reviewed plan of care with patient and family
Assessment
-
Patient is a very pleasant 73 old gentleman with questionable history of COPD who presented to the hospital with cough and some confusion going on for few days. Patient reports that the cough started with some runny nose, nonproductive and has been
associated with wheezing. He does not report any similar episode in the last 1 year. Patient reports that he was given a diagnosis of COPD couple of years ago and takes Symbicort at home along with as needed albuterol. Usually he takes albuterol
only 2-3 times a week but lately since he got sick he has been using it multiple times every day without significant improvement. In the emergency room workup included a CT chest which was negative for pulmonary embolism or infiltrate but showed
mediastinal and hilar lymphadenopathy. Pulmonary consultation was requested for further input.
Acute exacerbation of hyperreactive airway disease, suspect asthma exacerbation.
Acute bronchitis.
Mediastinal and Hilar lymphadenopathy.
SOB/wheezing
Conditions present COUNSELING AIDE
Hypothyroidism, unspecified
Testicular hypofunction
History of primary IgA nephropathy
Macrocytosis without anemia
Allergic rhinitis, unspecified
GERD without esophagitis
Mild intermittent asthma without complication
Plan
Stable on RA, has been ambulating without issue
Encouraged walking today
Still having BO but mild
Patient smoked only for about a year and a half and does not have any emphysematous changes on imaging.
Less likely has significant COPD. Suspect patient might have underlying asthma.
Hold Symbicort while getting nebulized steroids and bronchodilators
Continue DuoNeb 4 times daily and budesonide twice daily scheduled
With persistent wheezing, continue Solu-Medrol 40 mg IV twice daily--will start to wean dose today
Transition to PO taper today
No definitive pulmonary infiltrates noted on imaging.
CT scan reviewed and is not suggestive of interstitial lung disease based on radiological features.
PCT negative
Can continue doxycycline for about 5 days or stop
Repeat chest x-ray two-view today reviewed without significant findings
CT scan reviewed and is suggestive of paratracheal and subcarinal lymphadenopathy along with right hilar lymph node enlargement.
Right hilar is almost at 3.1 cm which is somewhat concerning. These changes could be reactive to an infection but need close monitoring for other etiologies including malignancy.
Continue treatment for acute bronchitis
Will plan a 6 to 8-week follow-up CT scan as outpatient, if lymph node still enlarged, will need EBUS-TBNA--reviewed again
I updated the patient and her daughter at bedside regarding this abnormal finding and need for close follow-up as outpatient
CT abdomen reviewed, no extrathoracic lymphadenopathy noted
Post discharge, patient will need pulmonary function testing along with lung volumes, bronchodilator responsiveness and 6-minute walk test, will arrange that as outpatient
Outpatient pulmonary follow-up
Data:
CT CHEST 10/2024: 1. Mildly enlarged mediastinal lymph nodes measuring up to 1.4 cm in the low left paratracheal region and 1.1 cm short axis diameter in the subcarinal region. Right hilar lymphadenopathy measures up to 3.1 cm. Mild left hilar
lymphadenopathy. These lymph nodes are increased from prior.
2. No suspicious pulmonary nodules, areas of airspace disease, pleural or pericardial effusions. Heart is not enlarged. Mild to moderate coronary artery calcifications.
3. No PE
CXR 10/2024: Unremarkable
ECHO 10/2024: 1. Left ventricle: Normal size and function with an estimated ejection fraction is 66%. A false tendon is noted at the LV apex. Normal diastolic function.
2. Right ventricle: Normal
3. Atria: Normal
4. Mitral valve: Mild mitral regurgitation
5. Aortic valve: No aortic stenosis or aortic insufficiency
6. Tricuspid valve: Mild to moderate tricuspid regurgitation with estimated pulmonary artery systolic pressures of 30-35 mmHg
7. When compared to the most recent echocardiogram from 02/24/2024 there has been no significant change
Exercise Stress test 02/2024: Negative for Ischemia
ECHO 02/2024: Normal left ventricular size, wall thickness and systolic function. No regional wall motion abnormalities are seen. LV ejection fraction is 60-65% by Monsalve's method of discs. Normal diastolic function.
Normal right ventricular size and function. Mild mitral regurgitation. Mild to moderate tricuspid regurgitation. Estimated pulmonary artery pressure of 35-40 mmHg, assuming a right atrial pressure of 3 mmHg. Compared to previous echo 09/04/2015,
the tricuspid regurgitation is increased from trace to mild-moderate.
Total time spent on this consultation/encounter _42___ minutes which includes review of history, physical exam, medications, laboratory data, personal review of imaging, extensive review of outpatient records, discussion with care team and
respiratory therapy.
Subjective Data
-
Date of Service:
Date of Service: October 24, 2024
Chief Complaint: Pulmonary Follow Up
Subjective:
Better today, but still having some BO
Stable on RA
Objective Data
Data Reviewed
Vital Signs / I&O / Oxygen:
Vital Signs
Temp Pulse Resp BP Pulse Ox
98 F 72 14 125/76 100
10/24/24 07:26 10/24/24 11:13 10/24/24 11:13 10/24/24 08:34 10/24/24 10:13
Intake and Output
10/23/24 10/24/24 10/25/24
06:59 06:59 06:59
Intake Total 1440 / 1440 960 / 960
Output Total 900 / 900
Balance 1440 / 1440 60 / 60
SaO2 100
Nasal Cannula flow liters per 4
minute
Physical Exam
General: Comfortable and Other (NAD)
HEENT: Normocephalic, Anicteric, Moist Mucous Membranes and Other (facial redness)
Cardiovascular: S1-S2 and Regular Rhythm
Respiratory: Clear and Non-Labored Respirations
GI: Soft, Non Distended and Non Tender
Neurology: Awake, Alert, Oriented and No Motor Deficits
Skin: Warm, Dry and Good Color
Labs/Micro/Reports
Lab Data
10/20/24 06:56
10/22/24 07:13
Microbiology
10/20/24 00:49 Sputum Respiratory Culture - Final
Usual Respiratory Katie
10/20/24 00:49 Sputum Gram Stain - Final
[2024-10-24 11:59] VITALS: BP 130/82
[2024-10-24 15:06] VITALS: BP 124/73
[2024-10-24] MEDS: LIPITOR 40 MG PO (17:03)
[2024-10-24] MEDS: SINGULAIR 10 MG PO (19:32)
[2024-10-24] MEDS: B COMPLEX w/VITAMIN C 1 CAPLET PO (19:32)
[2024-10-24] MEDS: MELATONIN 10 MG PO (21:23)
[2024-10-25 00:10] VITALS: BP 110/80
[2024-10-25] MEDS: SYNTHROID 137 MCG PO (05:49)
[2024-10-25 07:19] VITALS: BP 125/77
[2024-10-25] MEDS: DUONEB 3 ML INH ×4 (07:20→19:13)
[2024-10-25 08:33] LABS: ALT (SGPT) 62 U/L (0-50); AST (SGOT) 39 U/L (17-59); Albumin 4.5 g/dl (3.5-5.0); Alkaline Phosphatase 64 U/L (38-126); Blood Urea Nitrogen 34 mg/dl (9-20); Calcium 9.3 mg/dl (8.4-10.2); Carbon Dioxide 14 mmol/L (22-30); Chloride 103 mmol/L (98-107); Estimated Creatinine Clearance 75 ml/min; Glucose 115 mg/dl (70-99); Potassium 4.7 mmol/L (3.5-5.1); Sodium 135 mmol/L (135-145); Total Bilirubin 0.7 mg/dl (0.2-1.3); Total Protein 7.6 g/dl (6.3-8.2); eGFR > 60.00
[2024-10-25] MEDS: MUCINEX 600 MG PO ×2 (08:37→20:32)
[2024-10-25] MEDS: DELTASONE 50 MG PO (08:37)
[2024-10-25] MEDS: ELIQUIS 5 MG PO ×2 (08:37→20:33)
[2024-10-25] MEDS: CARDIZEM CD 120 MG PO (08:37)
[2024-10-25 08:45] LABS: % Basophils 0.3 % (0-2); % Eosinophils 0.2 % (0-6); % Immature Granulocytes 1.7 % (0-0.5); % Lymphocytes 14.4 % (20.5-51.1); % Neutrophils 70.4 % (42.2-75.2); Absolute Immature Granulocytes 0.2 10^3/uL (0-0.05); Absolute Lymphocytes 1.4 10^3/uL (1.2-3.4); Absolute Monocytes 1.3 10^3/uL (0.1-0.6); Absolute Neutrophils 6.9 10^3/uL (1.4-6.5); Hematocrit 38.3 % (39.0-52.0); Hemoglobin 13.4 g/dL (13.0-18.0); Mean Corpuscular Hgb 37.5 pg (27.0-31.0); Mean Corpuscular Volume 107.3 fL (80.0-94.0); Mean Platelet Volume 9.4 fL (7.4-10.4); Nucleated Red Blood Cells % 0 % (-); Platelet Count 181 10^3/uL (130-400); Red Blood Cell Count 3.57 10^6/uL (4.70-6.10); Red Cell Dist. Width 12.1 % (11.5-14.5); White Blood Cell Count 9.8 10^3/uL (4.8-10.8)
[2024-10-25 09:30] LABS: B.E. -0.5 mmol/L; HCO3 23.1 mmol/L (21-28); O2 Saturation % 97.8 % (94-98); PCO2 34 mmHg (35-48); PO2 82 mmHg (83-108); pH 7.44 (7.35-7.45)
[2024-10-25 10:33] LABS: NT-proBNP < 20.0 pg/ml
[2024-10-25 11:37] VITALS: BP 130/81; PULSE 75; O2SAT 94
--- NOTE | 2024-10-25 11:54 | W.PN.PUL3 ---
Today's Communication / Plan
-
Restart restart Symbicort upon discharge
Cont. nebs
Add acapella device
Follow BMP
Prednisone taper decrease by 10 mg every 48 hours to off
observe off ABX
hopefully DC tomorrow in AM
Will have CM arrange for a nebulizer machine with Duonbes q6hr PRN
Will follow.
Assessment
-
Patient is a very pleasant 73 old gentleman with questionable history of COPD who presented to the hospital with cough and some confusion going on for few days. Patient reports that the cough started with some runny nose, nonproductive and has been
associated with wheezing. He does not report any similar episode in the last 1 year. Patient reports that he was given a diagnosis of COPD couple of years ago and takes Symbicort at home along with as needed albuterol. Usually he takes albuterol
only 2-3 times a week but lately since he got sick he has been using it multiple times every day without significant improvement. In the emergency room workup included a CT chest which was negative for pulmonary embolism or infiltrate but showed
mediastinal and hilar lymphadenopathy. Pulmonary consultation was requested for further input.
Acute exacerbation of hyperreactive airway disease, suspect asthma exacerbation.
Acute bronchitis.
Mediastinal and Hilar lymphadenopathy.
SOB/wheezing
Conditions present STORE LOSS PREVENTION MANAGER
Hypothyroidism, unspecified
Testicular hypofunction
History of primary IgA nephropathy
Macrocytosis without anemia
Allergic rhinitis, unspecified
GERD without esophagitis
Mild intermittent asthma without complication
Plan
Stable overnight
Ambulatory but still feels SOB, also tight and difficulty expectorating this AM 10/25/2024
Not requiring oxygen supplementation
Patient smoked only for about a year and a half and does not have any emphysematous changes on imaging.
Less likely has significant COPD. Suspect patient might have underlying asthma.
Hold Symbicort-restart upon discharge.
Continue DuoNeb 4 times daily and budesonide twice daily scheduled-while in the hospital.
Prednisone 50 mg, decrease by 10 mg every 48 hours to off.
Still with mild coarse breath sound and difficulty expectorating.
Cont muninex
add acapella today
Will have CM arrange for nebulizer with PRN duonebs prior DC.
No definitive pulmonary infiltrates noted on imaging.
CT scan reviewed and is not suggestive of interstitial lung disease based on radiological features.
Chest x-ray 10/25/2024: Reviewed, no acute cardiopulmonary process.
PCT negative
Doxycicline DCd - monitor
sputum culture with normal resp. valerio.
CT scan reviewed and is suggestive of paratracheal and subcarinal lymphadenopathy along with right hilar lymph node enlargement.
Right hilar is almost at 3.1 cm which is somewhat concerning. These changes could be reactive to an infection but need close monitoring for other etiologies including malignancy.
Continue treatment for acute bronchitis
Will plan a 6 to 8-week follow-up CT scan as outpatient, if lymph node still enlarged, will need EBUS-TBNA--reviewed again
Dr. Allen updated the patient and her daughter at bedside regarding this abnormal finding and need for close follow-up as outpatient
CT abdomen reviewed, no extrathoracic lymphadenopathy noted
new Non GAP metabolic acidosis - unclear reasons- defer to primary team.
Normal renal function and no diarrhea.
ABG- 10/25/2024 no significant acid base disturbances.
Follow BMP.
Post discharge, patient will need pulmonary function testing along with lung volumes, bronchodilator responsiveness and 6-minute walk test, will arrange that as outpatient
Outpatient pulmonary follow-up
-
Would hold DC based on pt symptoms and exam.
Discussed with pt, likely will be ready to DC in AM 10/26/2024

Data:
CT CHEST 10/2024: 1. Mildly enlarged mediastinal lymph nodes measuring up to 1.4 cm in the low left paratracheal region and 1.1 cm short axis diameter in the subcarinal region. Right hilar lymphadenopathy measures up to 3.1 cm. Mild left hilar
lymphadenopathy. These lymph nodes are increased from prior.
2. No suspicious pulmonary nodules, areas of airspace disease, pleural or pericardial effusions. Heart is not enlarged. Mild to moderate coronary artery calcifications.
3. No PE
CXR 10/2024: Unremarkable
ECHO 10/2024: 1. Left ventricle: Normal size and function with an estimated ejection fraction is 66%. A false tendon is noted at the LV apex. Normal diastolic function.
2. Right ventricle: Normal
3. Atria: Normal
4. Mitral valve: Mild mitral regurgitation
5. Aortic valve: No aortic stenosis or aortic insufficiency
6. Tricuspid valve: Mild to moderate tricuspid regurgitation with estimated pulmonary artery systolic pressures of 30-35 mmHg
7. When compared to the most recent echocardiogram from 02/24/2024 there has been no significant change
Exercise Stress test 02/2024: Negative for Ischemia
ECHO 02/2024: Normal left ventricular size, wall thickness and systolic function. No regional wall motion abnormalities are seen. LV ejection fraction is 60-65% by Monsalve's method of discs. Normal diastolic function.
Normal right ventricular size and function. Mild mitral regurgitation. Mild to moderate tricuspid regurgitation. Estimated pulmonary artery pressure of 35-40 mmHg, assuming a right atrial pressure of 3 mmHg. Compared to previous echo 09/04/2015,
the tricuspid regurgitation is increased from trace to mild-moderate.
Total time spent on this consultation/encounter _41___ minutes which includes review of history, physical exam, medications, laboratory data, personal review of imaging, extensive review of outpatient records, discussion with care team and
respiratory therapy.
Subjective Data
-
Date of Service:
Date of Service: October 25, 2024
Chief Complaint: Pulmonary Follow Up
Subjective:
[place] some chest tightness and difficulty expectorating this AM.
Ambulated to restroom and felt SOB.
Review of Systems
Cardiopulmonary: Dyspnea (n), Cough (n) and Sputum Production (difficulty expectorating)
GI: Abdominal Pain (n) and Nausea (n)
Objective Data
Data Reviewed
Vital Signs / I&O / Oxygen:
Vital Signs
Temp Pulse Resp BP Pulse Ox
97.6 F 73 16 125/77 97
10/25/24 07:19 10/25/24 11:17 10/25/24 11:17 10/25/24 08:37 10/25/24 11:17
Intake and Output
10/24/24 10/25/24 10/26/24
06:59 06:59 06:59
Intake Total 960 / 960 840 / 840
Output Total 900 / 900
Balance 60 / 60 840 / 840
SaO2 97
Nasal Cannula flow liters per 4
minute
Physical Exam
General: Comfortable and Other (NAD)
HEENT: Normocephalic, Anicteric, Moist Mucous Membranes and Other (facial redness)
Cardiovascular: S1-S2 and Regular Rhythm
Respiratory: Clear and Non-Labored Respirations
GI: Soft, Non Distended and Non Tender
Neurology: Awake, Alert, Oriented and No Motor Deficits
Skin: Warm, Dry and Good Color
Labs/Micro/Reports
Lab Data
10/25/24 07:11
10/25/24 07:11
Laboratory Results
10/25/24
09:20
pH 7.44
pCO2 34 L
pO2 82 L
HCO3 23.1
O2 Delivery Level
Microbiology
10/20/24 00:49 Sputum Respiratory Culture - Final
Usual Respiratory Valerio
10/20/24 00:49 Sputum Gram Stain - Final
--- NOTE | 2024-10-25 12:27 | VNURNOTE ---
Addendum entered by Eliza Hatch RN 10/25/24 12:52:
Chart reviewed. Noted that Pulm is recommending Albuterol Nebs at home. Pt will need Neb machine. Spoke with daughter Martita (primary contact and POA), she deferred to patient. Spoke with patient again. He chooses to buy neb machine & mask out
of pocket. Advised that he will have neb solution Rx that will be filled through is usual pharmacy. Patient verbalized understanding. He will ask his daughter to cotton picker machine. Provided him [facility] pharmacy address & number. EDMAR Beebe updated.
Original Note:
Home Health Liaison met with patient at bedside to discuss [facility] nurse/therapy, visits, schedule and homebound status. Patient is agreeable and understands that visits at home will be 2-3 x per week to assess and teach medical management. [facility] is
aware [facility] for start of care in 1-2 days after discharge from . Possibly home with new neb machine. Will follow up. [facility] referral [facility].
--- NOTE | 2024-10-25 13:19 | W.PN.HOSP.TC ---
Today's Communication/Plan
-
rales and wheezing today - watch overnight
Assessment / Plan
Assessment / Plan
73yo M with PMHX of COPD, hypothyroidism came with SOB, found COPD xacerbation, improving on steroids. No signs of pneumonia seen, but cannot exclude bronchitis
A/P:
#COPD exacerbation
#mediastinal and hilar lymphadenopathy
taper off steroids
cont bronchodilators
Pulm follows: repeat CT as outpatient
ProBNP low, no concern for cardiac component
#New Afib
Eliquis
Cardio followed
rate control
#TIA
resolved
brain MRI without acute findings
Carotid US without clinically significant stenosis
Echo without PFO or intracardial mass
Cotn Eliquis as per neurology
lipitor
#Chronic multilevel cervical cord compression, mild
#DJD
without neurologic deficit
outpatient follow up
PT/OT
#Hypothyroidism
TSH mildly decreased - decrease Synthroid to 125mcg and patient to repate TFT with PCP in 2-3 weeks upon d/c
#Testosterone deficiency
#GERD
#Hx of IgA nephropathy
#MAcrocytosis
B12 and folate WNL
Outpatietn hematology
#Diverticulosis w/o diverticulitis
high fiber diet
DVT ppx Eliquis
Full code
I have spent at least 56min reviwing chart, test results, communication with conasultants and providing direct patient care
Anticipated Discharge: Within 24 hours
Subjective/Interval History
-
Date of Service: October 25, 2024
Objective Data
-
Labs:
Laboratory Results
10/25/24 10/25/24
07:11 09:20
WBC 9.8
Hgb 13.4
Hct 38.3 L
Plt Count 181 D
HCO3 23.1
Sodium 135
Potassium 4.7
Chloride 103
Carbon Dioxide 14 L*
BUN 34 H
Creatinine 1.0
Glucose 115 H
Calcium 9.3
Total Bilirubin 0.7
AST 39
ALT 62 H
Alkaline Phosphatase 64
Vital Signs:
Vital Signs
Temp Pulse Resp BP Pulse Ox
97.6 F 73 16 125/77 97
10/25/24 07:19 10/25/24 11:17 10/25/24 11:17 10/25/24 08:37 10/25/24 11:17
I&O
10/24/24 10/25/24 10/26/24
06:59 06:59 06:59
Intake Total 960 / 960 840 / 840
Output Total 900 / 900
Balance 60 / 60 840 / 840
Review of Systems
-
History Source: Patient
All other systems: Reviewed and negative
Physical Exam
-
General: No Apparent Distress
HEENT: Normocephalic
Respiratory: Wheezes and Rales
Cardiac: Regular Rhythm
GI: Soft, Nontender and Nondistended
Musculoskeletal: No Clubbing, No Cyanosis and No Edema
Neuro: Awake, Alert, Oriented and AO x 3
Psych: Calm
[2024-10-25 15:09] VITALS: BP 132/79
[2024-10-25] MEDS: LIPITOR 40 MG PO (17:15)
[2024-10-25] MEDS: MELATONIN 10 MG PO (20:32)
[2024-10-25] MEDS: SINGULAIR 10 MG PO (20:32)
[2024-10-25] MEDS: B COMPLEX w/VITAMIN C 1 CAPLET PO (20:32)
[2024-10-25 23:58] VITALS: BP 130/79
[2024-10-26] MEDS: SYNTHROID 125 MCG PO (05:12)
[2024-10-26] MEDS: ProAIR HFA INHALER 2 PUFF INH (05:25)
[2024-10-26 07:15] VITALS: BP 131/86
[2024-10-26] MEDS: DUONEB 3 ML INH ×2 (07:41→11:43)
[2024-10-26] MEDS: ELIQUIS 5 MG PO (09:43)
[2024-10-26] MEDS: CARDIZEM CD 120 MG PO (09:43)
[2024-10-26] MEDS: DELTASONE 50 MG PO (09:43)
[2024-10-26] MEDS: MUCINEX 600 MG PO (09:43)
--- NOTE | 2024-10-26 10:02 | W.PN.HOSP.TC ---
Today's Communication/Plan
-
dc
Assessment / Plan
Assessment / Plan
73yo M with PMHX of COPD, hypothyroidism came with SOB, found COPD exacerbation, improving on steroids. No signs of pneumonia seen, but cannot exclude bronchitis, so reasonable for short course of doxy. Over the course of hospital stay was found new
onset Afib too that probably caused TIA. Synthroid also was decreased and patient will need to repeat TFT in 3 weeks with PCP. Not hypoxic on the day of d/c and improving. Medically stable for d/c with outpatient follow up
A/P:
#COPD exacerbation
#mediastinal and hilar lymphadenopathy
taper off steroids
cont bronchodilators
Pulm follows: repeat CT as outpatient
ProBNP low, no concern for cardiac component
#New Afib
Eliquis
Cardio followed
rate control
#TIA
resolved
brain MRI without acute findings
Carotid US without clinically significant stenosis
Echo without PFO or intracardial mass
Cotn Eliquis as per neurology
lipitor
#Chronic multilevel cervical cord compression, mild
#DJD
without neurologic deficit
outpatient follow up
PT/OT
#Hypothyroidism
TSH mildly decreased - decrease Synthroid to 125mcg and patient to repate TFT with PCP in 2-3 weeks upon d/c
#Testosterone deficiency
#GERD
#Hx of IgA nephropathy
#MAcrocytosis
B12 and folate WNL
Outpatietn hematology
#Diverticulosis w/o diverticulitis
high fiber diet
DVT ppx Eliquis
Full code
I have spent at least 56min reviwing chart, test results, communication with conasultants and providing direct patient care
Anticipated Discharge: Today
Subjective/Interval History
-
Date of Service: October 26, 2024
Objective Data
-
Vital Signs:
Vital Signs
Temp Pulse Resp BP Pulse Ox
97.6 F 75 16 131/86 95
10/26/24 07:15 10/26/24 07:41 10/26/24 07:41 10/26/24 07:15 10/26/24 07:41
I&O
10/25/24 10/26/24 10/27/24
06:59 06:59 06:59
Intake Total 840 / 840 800 / 800
Balance 840 / 840 800 / 800
Review of Systems
-
History Source: Patient
All other systems: Reviewed and negative
Respiratory: Reports Cough
Physical Exam
-
General: No Apparent Distress
HEENT: Normocephalic
Respiratory: Other and Chest Tubes; Negative Wheezes
Cardiac: Regular Rhythm
GI: Soft
Musculoskeletal: No Clubbing, No Cyanosis and No Edema
Neuro: Awake, Alert, Oriented and AO x 3
Psych: Calm
--- NOTE | 2024-10-26 10:11 | W.DCSUMMARY ---
Discharge Summary
Discharge Data
Date of Admission: 10/19/24
Date of Discharge: 10/26/24
-
Pending Results: No
Hospital Course
73yo M with PMHX of COPD, hypothyroidism came with SOB, found COPD exacerbation, improving on steroids. No signs of pneumonia seen, but cannot exclude bronchitis, so reasonable for short course of doxy. Over the course of hospital stay was found new
onset Afib too that probably caused TIA. Synthroid also was decreased and patient will need to repeat TFT in 3 weeks with PCP. Outpatient hematology referal for chronic macrocytosis and psychiatry referral for neuropsychiatric testing provided. Low
bicarb on labs was not confirmed on subsequent ABG. Not hypoxic on the day of d/c and improving. Medically stable for d/c with outpatient follow up
I have spent at least 36min reviwing chart, test results, communication with conasultants and providing direct patient care
A/P:
#COPD exacerbation
#mediastinal and hilar lymphadenopathy
#New Afib
#TIA
#Chronic multilevel cervical cord compression, mild
#DJD
#Hypothyroidism
#Testosterone deficiency
#GERD
#Hx of IgA nephropathy
#MAcrocytosis
#Diverticulosis w/o diverticulitis
Discharge Plan
-
Patient Disposition: Home with Home Care
Discharge Diagnosis/Procedures: Asthma exacerbation, transient ischemic attack, newly diagnosed atrial fibrillation, hyponatremia, confusion, weakness
Condition: Good
Diet: Low Fat and Low Cholesterol
Activity: As tolerated
Driving Restrictions: As prior to admission
Activity Restrictions/Additional Instructions:
Follow-up with your primary care doctor in 1 week, cardiology as directed, and pulmonology in 1 month.
Follow-up with Dr. Ty Mcdaniel for neuropsychiatric testing for cognitive assessment.
Referrals:
Mynor Philip DO [Active] - in one month (for microcytosis workup)
Melinda Hobson MD [Active] - in one month (Mediastinal Lymphadenopathy / PFTs, repeat CT chest)
Ty Mcdaniel PSY [Specified Professional Personl] - in two to three weeks
Keyona Perez MD [Family Provider] - in three to four days (repeat thyroid test)
Gwen David CRNP [Specified Professional Personl] - 11/12/24 8:20 am (You have a cardiology follow up appointment at the [place] office. Please call with questions. )
Prescriptions:
New
diltiazem HCl 120 mg Capsule,Extended Release 24hr
120 mg PO DAILY Qty: 30 0RF
Eliquis 5 mg Tablet
5 mg PO BID Qty: 60 0RF
atorvastatin 40 mg Tablet
40 mg PO QPM Qty: 30 0RF
levothyroxine 125 mcg Tablet
125 mcg PO DAILY@0600 Qty: 30 0RF
guaifenesin 600 mg Tablet Extended Release 12hr
600 mg PO Q12 Qty: 60 0RF
budesonide-formoterol [Breyna] 160-4.5 mcg/actuation HFA aerosol inhaler
2 puff inhalation BID Qty: 10.2 3RF
prednisone 10 mg Tablet
See Rx Instructions .ROUTE .COMPLEX Qty: 30 0RF
Rx Instructions:
Take By Mouth:
40 mg daily x3 days, 30 mg daily x3 days,
20 mg daily x3 days, 10 mg daily x3 days.
doxycycline hyclate 100 mg capsule
100 mg PO BID Qty: 10 0RF
Continued
montelukast 10 mg tablet
10 mg PO HS
fluticasone propionate 50 mcg/actuation spray,suspension
2 spray INTRANASAL DAILY
vitamin A-vitamin C-vit E-min Tablet
1 tab PO DAILY
testosterone 1 % (50 mg/5 gram) Gel In Packet
1 packet TRANSDERMAL DAILY
vitamin B complex Tablet
1 tab PO DAILY
albuterol sulfate 90 mcg/actuation Hfa Aerosol Inhaler
2 puff INHALATION R Q6HPRN PRN (Reason: sob)
Systane (PF) 0.4-0.3 % Dropperette
1 drp BOTH EYES Q6HPRN PRN (Reason: dry eyes)
vitamin D3-vitamin K2 125 mcg (5,000 unit)-100 mcg Capsule
1 cap PO DAILY
Discontinued
levothyroxine 137 mcg tablet
137 mcg PO DAILY
budesonide-formoterol [Symbicort] 80-4.5 mcg/actuation Hfa Aerosol Inhaler
2 puff INHALATION R BID
Discharge Orders:
Discharge Patient (As Directed); Ordered 10/26/24
Ordered By: Philippe Greer
Discharge Date and Time
Print Language: HUNGARIAN
--- NOTE | 2024-10-26 10:40 | W.PN.PUL3 ---
Today's Communication / Plan
-
Restart symbycort
prednison taper
ok to use acapella at home until symptoms clear.
Albuterol HFA prn.
Outpatinent radiographic follow up wtih CT.
outpx pulmonary follow up
Sign off.
Assessment
-
Patient is a very pleasant 73 old gentleman with questionable history of COPD who presented to the hospital with cough and some confusion going on for few days. Patient reports that the cough started with some runny nose, nonproductive and has been
associated with wheezing. He does not report any similar episode in the last 1 year. Patient reports that he was given a diagnosis of COPD couple of years ago and takes Symbicort at home along with as needed albuterol. Usually he takes albuterol
only 2-3 times a week but lately since he got sick he has been using it multiple times every day without significant improvement. In the emergency room workup included a CT chest which was negative for pulmonary embolism or infiltrate but showed
mediastinal and hilar lymphadenopathy. Pulmonary consultation was requested for further input.
Acute exacerbation of hyperreactive airway disease, suspect asthma exacerbation.
Acute bronchitis.
Mediastinal and Hilar lymphadenopathy.
SOB/wheezing
Conditions present [employer]
Hypothyroidism, unspecified
Testicular hypofunction
History of primary IgA nephropathy
Macrocytosis without anemia
Allergic rhinitis, unspecified
GERD without esophagitis
Mild intermittent asthma without complication
Plan
Clinically improved
Clear lung exam 10/26/2024
Patient smoked only for about a year and a half and does not have any emphysematous changes on imaging.
Less likely has significant COPD. Suspect patient might have underlying asthma.
-
Agree with DC planning today.
Restart Symbicort-restart upon discharge.
Continue DuoNeb 4 times daily and budesonide twice daily scheduled-while in the hospital.
Prednisone 50 mg, decrease by 10 mg every 48 hours to off.
may use acapella until symptoms clear.
-
No definitive pulmonary infiltrates noted on imaging.
CT scan reviewed and is not suggestive of interstitial lung disease based on radiological features.
Chest x-ray 10/25/2024: Reviewed, no acute cardiopulmonary process.
PCT negative
Doxycicline DCd - monitor
sputum culture with normal resp. valerio.
CT scan reviewed and is suggestive of paratracheal and subcarinal lymphadenopathy along with right hilar lymph node enlargement.
Right hilar is almost at 3.1 cm which is somewhat concerning. These changes could be reactive to an infection but need close monitoring for other etiologies including malignancy.
Continue treatment for acute bronchitis
Will plan a 6 to 8-week follow-up CT scan as outpatient, if lymph node still enlarged, will need EBUS-TBNA--reviewed again
Dr. Allen updated the patient and her daughter at bedside regarding this abnormal finding and need for close follow-up as outpatient
CT abdomen reviewed, no extrathoracic lymphadenopathy noted
-
ABG- 10/25/2024 no significant acid base disturbances.
Follow BMP.
Post discharge, patient will need pulmonary function testing along with lung volumes, bronchodilator responsiveness and 6-minute walk test, will arrange that as outpatient
Outpatient pulmonary follow-up
-
DC planning today.
Will sign off.

Data:
CT CHEST 10/2024: 1. Mildly enlarged mediastinal lymph nodes measuring up to 1.4 cm in the low left paratracheal region and 1.1 cm short axis diameter in the subcarinal region. Right hilar lymphadenopathy measures up to 3.1 cm. Mild left hilar
lymphadenopathy. These lymph nodes are increased from prior.
2. No suspicious pulmonary nodules, areas of airspace disease, pleural or pericardial effusions. Heart is not enlarged. Mild to moderate coronary artery calcifications.
3. No PE
CXR 10/2024: Unremarkable
ECHO 10/2024: 1. Left ventricle: Normal size and function with an estimated ejection fraction is 66%. A false tendon is noted at the LV apex. Normal diastolic function.
2. Right ventricle: Normal
3. Atria: Normal
4. Mitral valve: Mild mitral regurgitation
5. Aortic valve: No aortic stenosis or aortic insufficiency
6. Tricuspid valve: Mild to moderate tricuspid regurgitation with estimated pulmonary artery systolic pressures of 30-35 mmHg
7. When compared to the most recent echocardiogram from 02/24/2024 there has been no significant change
Exercise Stress test 02/2024: Negative for Ischemia
ECHO 02/2024: Normal left ventricular size, wall thickness and systolic function. No regional wall motion abnormalities are seen. LV ejection fraction is 60-65% by Monsalve's method of discs. Normal diastolic function.
Normal right ventricular size and function. Mild mitral regurgitation. Mild to moderate tricuspid regurgitation. Estimated pulmonary artery pressure of 35-40 mmHg, assuming a right atrial pressure of 3 mmHg. Compared to previous echo 09/04/2015,
the tricuspid regurgitation is increased from trace to mild-moderate.
Subjective Data
-
Date of Service:
Date of Service: October 26, 2024
Chief Complaint: Pulmonary Follow Up
Subjective:
Feels better
Ambulatory, denied significant sob
Review of Systems
Cardiopulmonary: Dyspnea (resolved)
GI: Abdominal Pain (n)
Neuro: Headache (n)
Objective Data
Data Reviewed
Vital Signs / I&O / Oxygen:
Vital Signs
Temp Pulse Resp BP Pulse Ox
97.6 F 75 16 131/86 95
10/26/24 07:15 10/26/24 07:41 10/26/24 07:41 10/26/24 07:15 10/26/24 07:41
Intake and Output
10/25/24 10/26/24 10/27/24
06:59 06:59 06:59
Intake Total 840 / 840 800 / 800
Balance 840 / 840 800 / 800
SaO2 95
Nasal Cannula flow liters per 4
minute
Physical Exam
General: Comfortable and Other (NAD)
HEENT: Normocephalic, Anicteric, Moist Mucous Membranes and Other (facial redness)
Cardiovascular: S1-S2 and Regular Rhythm
Respiratory: Clear and Non-Labored Respirations
GI: Soft, Non Distended and Non Tender
Neurology: Awake, Alert, Oriented and No Motor Deficits
Skin: Warm, Dry and Good Color
Labs/Micro/Reports
Lab Data
10/25/24 07:11
10/25/24 07:11
--- NOTE | 2024-10-26 10:47 | CM ---
Met with patient as he is medically cleared for discharge. He signed IMM and stated that his will be coming in to pick him up. IMM on chart. Patient will return home with VN.
Plan: Case management will continue to follow and assist with discharge planning. Home with VN.
--- NOTE | 2024-10-26 13:11 | PTCARENOTE ---
Patient ambulating in room with s steady gait. Patient has no c/o of SOB at present. Patient is eager to go home today and confirmed he is to be discharged with Duonebs/nebulizer machine. Patient states, 'My is picking up the nebulizer machine
at [facility].' Physician notified for Duoneb script to be sent to patient's [facility] pharmacy.
[2024-10-26 13:26] VITALS: BP 128/84
== END 2024-10-26 13:40 | disposition home health service (06) | DRG 640 ==
LOC: 4 EAST ACU 18:59
PROVIDERS: Emergency Medicine; Nurse Practitioner Family; Physician Assistant; ADMITTING PHYSICIAN Family Medicine; ATTENDING PHYSICIAN Internal Medicine; CONSULT PHYSICIAN Psychiatry & Neurology Clinical Neurophysiology; EMERGENCY PHYSICIAN Emergency Medicine; FAMILY PHYSICIAN Internal Medicine; OTHER PHYSICIAN Internal Medicine; OTHER PHYSICIAN Internal Medicine Cardiovascular Disease
DX: E87.1 Hypo-osmolality and hyponatremia (principal); G92.8 Other toxic encephalopathy; J45.21 Mild intermittent asthma with (acute) exacerbation; G45.9 Transient cerebral ischemic attack, unspecified; D61.818 Other pancytopenia; N02.B1 Recurrent and persistent immunoglobulin A nephropathy with glomerular lesion; M50.01 Cervical disc disorder with myelopathy, high cervical region; M50.021 Cervical disc disorder at C4-C5 level with myelopathy; E87.20 Acidosis, unspecified; K21.9 Gastro-esophageal reflux disease without esophagitis; I07.1 Rheumatic tricuspid insufficiency; I48.0 Paroxysmal atrial fibrillation; R06.89 Other abnormalities of breathing; R59.0 Localized enlarged lymph nodes; J20.9 Acute bronchitis, unspecified; F12.90 Cannabis use, unspecified, uncomplicated; E03.9 Hypothyroidism, unspecified; D75.89 Other specified diseases of blood and blood-forming organs; K57.30 Diverticulosis of large intestine without perforation or abscess without bleeding; R09.02 Hypoxemia; R29.810 Facial weakness; R47.1 Dysarthria and anarthria; Z79.890 Hormone replacement therapy; Z85.828 Personal history of other malignant neoplasm of skin; Z80.41 Family history of malignant neoplasm of ovary; Z82.3 Family history of stroke; Z88.2 Allergy status to sulfonamides
CPT/HCPCS: 36600; 70450; 70551; 71046; 71275; 74177; 80048; 80053; 80061; 80306; 81003; 81015; 82077; 82533; 82570; 82607; 82746; 82805; 83036; 83605; 83735; 83880; 83930; 83935; 84100; 84145; 84300; 84439; 84443; 85025; 85027; 87070; 87205; 87502; 87811; 93005; 93306; 93880; 94640; 96361; 96374; 97116; 97163; 97166; 97530; 99285; Q9967

== ENCOUNTER 2024-11-23 15:11 | Emergency (ER) | payer MEDICARE, SELFPAY ==
[2024-11-23] VITALS (10 sets, daily range): BP systolic 77–141; BP diastolic 53–89; PULSE 73–102; BMI 25.1
[2024-11-23 15:41] LABS: % Basophils 0.4 % (0-2); % Eosinophils 4.8 % (0-6); % Lymphocytes 15.8 % (20.5-51.1); % Monocytes 14.4 % (1.7-9.3); % Neutrophils 63.6 % (42.2-75.2); Absolute Eosinophils 0.2 10^3/uL (0-0.7); Absolute Immature Granulocytes 0.1 10^3/uL (0-0.05); Absolute Lymphocytes 0.8 10^3/uL (1.2-3.4); Absolute Monocytes 0.7 10^3/uL (0.1-0.6); Absolute Neutrophils 3.2 10^3/uL (1.4-6.5); Hematocrit 34.3 % (39.0-52.0); Hemoglobin 11.7 g/dL (13.0-18.0); Mean Corp Hgb Conc. 34.1 g/dL (33.0-37.0); Mean Corpuscular Hgb 36.6 pg (27.0-31.0); Mean Corpuscular Volume 107.2 fL (80.0-94.0); Mean Platelet Volume 8.7 fL (7.4-10.4); Nucleated Red Blood Cells % 0 % (-); Platelet Count 164 10^3/uL (130-400); Red Cell Dist. Width 12.4 % (11.5-14.5)
[2024-11-23 16:04] LABS: ALT (SGPT) 33 U/L (0-50); AST (SGOT) 32 U/L (17-59); Albumin 3.8 g/dl (3.5-5.0); Alkaline Phosphatase 72 U/L (38-126); Blood Urea Nitrogen 15 mg/dl (9-20); Calcium 9.1 mg/dl (8.4-10.2); Carbon Dioxide 25 mmol/L (22-30); Chloride 107 mmol/L (98-107); Glucose 91 mg/dl (70-99); Potassium 4.4 mmol/L (3.5-5.1); Sodium 138 mmol/L (135-145); Total Bilirubin 0.8 mg/dl (0.2-1.3); Total Protein 6.8 g/dl (6.3-8.2); eGFR > 60.00
--- NOTE | 2024-11-23 18:50 | ED.GENMED ---
History of Present Illness
General
Chief Complaint: Blood Pressure Problem
Time Seen by Provider: 11/23/24 17:41
History of Present Illness
History of Present Illness:
Patient is a 74-year-old man with history of rosacea, psoriasis, mitral regurgitation presenting to the emergency department with concerns for orthostatic hypotension. Patient states that he is on diltiazem and they did decrease his dose as he was
getting lightheaded dizzy on it. He states the past few days he noticed that when he gets up from sitting he drops his blood pressure . And get slightly lightheaded dizzy he does not pass out. He does state that he only drinks 4 glasses of water
a day. He does feel dehydrated. No chest pain. No shortness of breath. He also notes for the past few days he has had a rash to his face legs and trunk. He does state that he has been having some cough and rhinorrhea. No fevers or chills. No
skin sloughing. No confusion. No mucosal lesions. No lesions on the palms or soles. No new medications. No recent travel. No tick bites. It is slightly itchy. No new foods detergents or lotions. No recent travel. Up-to-date on
immunizations. No sick contacts
Past History
Past History
ED Past Medical History: Hypothyroidism
ED Past Surgical History: Orthopedic
Social History
Tobacco: Non-smoker
Alcohol: None
Personal:
Living: alone
Employment: Retired
Phy Exam
Physical Exam
Physical Exam:
GENERAL: in no acute distress
HEENT: normocephalic, extraocular movements intact, dry oral mucosa
NECK: normal inspection
RESPIRATORY: no respiratory distress, crackles at bases
CARDIOVASCULAR: regular rate and rhythm
ABDOMEN/: soft, non-distended, non-tender to palpation, no rebound or guarding
EXTREMITIES: non-tender, no edema/swelling
NEUROLOGIC: awake and alert, moves all extremities
SKIN: warm, macular papular rash mostly to the trunk and leg, blanching rash
Course
Orders/Labs/Results
Orders:
Orders
11/23/24 15:16
Electrocardiogram (*1) Urgent
Reason for Study: Vertigo / Dizzy
EKG- Treatment ONCE
11/23/24 15:33
Complete Blood Count/With Diff Urgent
Comprehensive Metabolic Panel Urgent
11/23/24 18:01
Orthostatic VS- Treatment ONCE
CR Chest - 2 Views Urgent
Comment:
Reason For Exam: crackles at bases
Abnormal Lab Results
11/23/24
15:33
RBC 3.20 L 10^6/uL
(4.70-6.10)
Hgb 11.7 L g/dL
(13.0-18.0)
Hct 34.3 L %
(39.0-52.0)
MCV 107.2 H fL
(80.0-94.0)
MCH 36.6 H pg
(27.0-31.0)
Abs Immat Gran (auto) 0.1 H 10^3/uL
(0-0.05)
Absolute Lymphs (auto) 0.8 L 10^3/uL
(1.2-3.4)
Absolute Monos (auto) 0.7 H 10^3/uL
(0.1-0.6)
Immature Gran % 1.0 H %
(0-0.5)
Lymphocytes % 15.8 L %
(20.5-51.1)
Monocytes % 14.4 H %
(1.7-9.3)
11/23/24 15:33
11/23/24 15:33
Vital Signs
Initial and Last Documented VS:
Initial Vital Signs
Temp Pulse Resp BP Pulse Ox
98.3 F 77 16 108/69 95
11/23/24 15:12 11/23/24 15:12 11/23/24 15:12 11/23/24 15:12 11/23/24 15:12
Last Documented Vital Signs
Temp Pulse Resp BP Pulse Ox
98.3 F 63 15 141/86 97
11/23/24 15:12 11/23/24 19:30 11/23/24 19:30 11/23/24 19:00 11/23/24 19:30
MDM/Problems Addressed
Differential Diagnosis Includes:
Patient is a 74-year-old man presenting to the emergency department with concerns for orthostatic hypotension and a rash. Initial vitals were unremarkable. Exam does show dry oral mucosa, crackles at bases and a blanchable diffuse macular papular
rash. Differential is broad but patient is overall really well-appearing. Hypotension is orthostatic as confirmed by vital signs obtained here. I did offer patient IV fluids versus p.o. fluids and patient would prefer p.o. fluids. It is
reassuring that patient is not hypotensive at baseline to suggest sepsis from this rash or his URI symptoms. The rash is likely a viral rash given that he does have cough and rhinorrhea. Less likely to be a drug rash as he has not been on any
medications. He does not have any eosinophilia. He is does not appear toxic and there is no sloughing of the skin other etiologies. History and exam not consistent with measles or shingles. Given patient's cough and rhinorrhea will obtain chest
x-ray to evaluate for signs of pneumonia. Patient will follow-up with his admissions manager rn as he does state that he has a very sensitive skin at baseline.
*Critical Care Note
Total Time (30-74mins, 75-104mins- exclusive of procedures): Not Applicable
Update Note
Update Note:
Chest x-ray per my interpretation possible right-sided pneumonia. Per the official read probable developing right lower lobe pneumonia. Will initiate antibiotics patient was ambulatory without any lightheadedness dizziness. Normal vital signs.
Will discharge at this time. Patient advised to increase water intake use compression stockings. he will call his tappet adjuster to see if the Cardizem can be changed. Strict return precautions given. Will discharge at this time
ED Attending Note
-
Portions of this chart may have been created with voice recognition software.� Occasional wrong word or��sound alike� substitutions may have occurred due to the inherent limitations of voice recognition software.
Discharge Plan
Departure
Patient Disposition: Home (Routine Discharge)
Date of Disposition: 11/23/24
Time of Disposition: 19:58
Patient with high blood pressure during this ER visit?: No
Discharge Problem:
Pneumonia, Orthostatic hypotension, Rash
Instructions: Pneumonia in adults - ED discharge instructions
Prescriptions:
New
cefuroxime axetil 500 mg tablet
500 mg PO Q12H 5 Days Qty: 10 0RF
azithromycin 250 mg tablet
See Rx Instructions .ROUTE .COMPLEX Qty: 6 0RF
Rx Instructions:
500mg on day 1
250mg day 2-5
No Action
montelukast 10 mg tablet
10 mg PO HS
fluticasone propionate 50 mcg/actuation spray,suspension
2 spray INTRANASAL DAILY
vitamin A-vitamin C-vit E-min Tablet
1 tab PO DAILY
testosterone 1 % (50 mg/5 gram) Gel In Packet
1 packet TRANSDERMAL DAILY
vitamin B complex Tablet
1 tab PO DAILY
albuterol sulfate 90 mcg/actuation Hfa Aerosol Inhaler
2 puff INHALATION R Q6HPRN PRN (Reason: sob)
Systane (PF) 0.4-0.3 % Dropperette
1 drp BOTH EYES Q6HPRN PRN (Reason: dry eyes)
vitamin D3-vitamin K2 125 mcg (5,000 unit)-100 mcg Capsule
1 cap PO DAILY
diltiazem HCl 120 mg Capsule,Extended Release 24hr
120 mg PO DAILY Qty: 30 0RF
Eliquis 5 mg Tablet
5 mg PO BID Qty: 60 0RF
atorvastatin 40 mg Tablet
40 mg PO QPM Qty: 30 0RF
levothyroxine 125 mcg Tablet
125 mcg PO DAILY@0600 Qty: 30 0RF
guaifenesin 600 mg Tablet Extended Release 12hr
600 mg PO Q12 Qty: 60 0RF
budesonide-formoterol [Breyna] 160-4.5 mcg/actuation HFA aerosol inhaler
2 puff inhalation BID Qty: 10.2 3RF
prednisone 10 mg Tablet
See Rx Instructions .ROUTE .COMPLEX Qty: 30 0RF
Rx Instructions:
Take By Mouth:
40 mg daily x3 days, 30 mg daily x3 days,
20 mg daily x3 days, 10 mg daily x3 days.
doxycycline hyclate 100 mg capsule
100 mg PO BID Qty: 10 0RF
ipratropium-albuterol 0.5 mg-3 mg(2.5 mg base)/3 mL solution for nebulization
3 ml inhalation Q6H PRN (Reason: shortness of breath or wheezing) Qty: 90 0RF
Referrals:
Keyona Perez MD [Family Provider] -
Activity Restrictions/Additional Instructions:
You were seen in the Emergency Department today for a rash and low blood pressure. While you were here we performed blood work, which was reassuring. Please take the antibiotics as prescribed. Please follow-up with her cardiology and dermatology
as discussed.
We would like for you to follow up with your primary care physician for further evaluation. If you experience fever, worsening of your symptoms, or develop any other new or concerning symptoms, please return to the Emergency Department immediately.
Please see the attached sheet for additional information.
Interventions
Interventions:
*Risk Screen - Suicide Last Done: 11/23/24 15:12
*General Assessment Last Done: 11/23/24 15:12
*Neglect/Abuse Screening Last Done: 11/23/24 15:12
*ED- Fall Risk Assessment Last Done: 11/23/24 18:16
*ED COVID-19 Vaccine History Last Done: 11/23/24 15:12
ED- Cardiac Assessment Last Done: 11/23/24 18:16
ED- Neurological Assessment Last Done: 11/23/24 18:16
ED- Pulmonary Assessment Last Done: 11/23/24 18:16
Discharge Date and Time
Print Language: MACEDONIAN
== END 2024-11-23 20:12 | disposition home or self-care (01) ==
LOC: EMR 15:11
PROVIDERS: EMERGENCY PHYSICIAN Student in an Organized Health Care Education/Training Program; FAMILY PHYSICIAN Internal Medicine
DX: J18.9 Pneumonia, unspecified organism (principal); I95.1 Orthostatic hypotension; R21 Rash and other nonspecific skin eruption; E03.9 Hypothyroidism, unspecified; I34.0 Nonrheumatic mitral (valve) insufficiency
CPT/HCPCS: 99285; 71046; 80053; 85025; 93005

== ENCOUNTER → 2024-12-20 09:28 | Outpatient (REF) | payer MEDICARE, SELFPAY | LOC: HWRAD 09:28 | PROVIDERS: ATTENDING PHYSICIAN Internal Medicine; PRIMARYCARE PHYSICIAN Internal Medicine | DX: R59.0 Localized enlarged lymph nodes (principal) | CPT/HCPCS: 71250 ==

== ENCOUNTER → 2024-12-22 14:50 | Outpatient (REF) | payer MEDICARE, SELFPAY | LOC: DHSLP 14:50 | PROVIDERS: ATTENDING PHYSICIAN Nurse Practitioner; FAMILY PHYSICIAN Internal Medicine | DX: G47.33 Obstructive sleep apnea (adult) (pediatric) (principal); R09.02 Hypoxemia | CPT/HCPCS: 95800 ==